=== PATIENT | male | born 1965 | race Hispanic/Latino ===

== ENCOUNTER 2018-04-06 22:50 | Inpatient (IN) | payer OTHER, SELFPAY ==
[2018-04-06 23:33] LABS: Absolute Lymphocytes (CBC) 1.2 K/uL (0.7-4.9); Absolute Monocytes 0.4 K/uL (0.1-1.3); Absolute Neutrophil 3.3 K/uL (1.8-8.0); Basophils % 0.7 % (0-1.3); Eosinophils % 2.1 % (0-4.4); Hematocrit 36.7 % (39.6-49.0); Lymphocytes % 24.2 % (15.3-44.8); MCV 94.4 fL (80-100); MPV 8.7 fL (7.6-11.3); Monocytes % 7.7 % (3.3-12.3); RBC Red Blood Cell Count 3.89 M/uL (4.33-5.43)
[2018-04-06 23:45] LABS: Protime INR 1.2
[2018-04-06 23:55] LABS: ALT/SGPT 27 U/L (12-78); AST/SGOT 40 U/L (15-37); Albumin 2.7 g/dL (3.4-5.0); Alkaline Phosphatase 268 U/L (45-117); BUN Blood Urea Nitrogen 14 mg/dL (7-18); Bicarbonate 22 mmol/L (21-32); Bilirubin Direct 0.7 mg/dL (0-0.2); Bilirubin Total 1.7 mg/dL (0.2-1.0); Glucose Level 174 mg/dL (74-106); Magnesium 1.5 mg/dL (1.8-2.4); NT PRO-BNP 29 pg/mL (<125); Potassium 4.5 mmol/L (3.5-5.1); Protein, Total 8.7 g/dL (6.4-8.2); Sodium Level 138 mmol/L (136-145); Troponin (Emerg Dept Use Only) < 0.02 ng/mL (0.0-0.045)
[2018-04-06 23:58] LABS: Urine Blood NEGATIVE (NEG); Urine Glucose NEGATIVE (NEG); Urine Protein TRACE (NEG); Urine Specific Gravity 1.025 (1.005-1.030)
[2018-04-07 00:05] LABS: Barbiturates NEGATIVE (NEGATIVE); Benzodiazepines NEGATIVE (NEGATIVE); Cocaine NEGATIVE (NEGATIVE); METHAMPHETAM NEGATIVE (NEGATIVE); Methadone NEGATIVE (NEGATIVE); Opiates NEGATIVE (NEGATIVE); Phencyclidine NEGATIVE (NEGATIVE); THC Cannibis NEGATIVE (NEGATIVE)
[2018-04-07] MEDS ORDERED: NA CHLORIDE 0.9% 2,000 ML ONE (00:12)
[2018-04-07] MEDS ORDERED: Magnesium Sulfate 2gm IVPB 2 G/50 ML BAG IV ONE (00:50)
--- NOTE | 2018-04-07 01:07 | ER ---
Nurse's Notes [facility] Name: Mega Mcpherson Age: 53 yrs Sex: Male : 1965 Arrival Date: 04/06/2018 Time: 22:53 Bed 7 Private MD: Diagnosis: Altered mental status, unspecified;Hepatic Encephalopathy Presentation: 04/06 22:53 Presenting complaint: EMS states: Called by patient's mother, states patient has been jd3 like this all day, states altered mental status; Non-complaint with lactulose medication, hx of cirrhosis. Transition of care: patient was not received from another setting of care. Onset of symptoms was April 06, 2018. Risk Assessment: Do you want to hurt yourself or someone else? Patient reports no desire to harm self or others. Initial Sepsis Screen: Does the patient meet any 2 criteria? No. Patient's initial sepsis screen is negative. Does the patient have a suspected source of infection? No. Patient's initial sepsis screen is negative. Care prior to arrival: IV initiated. 20 GA, in the left forearm, Glucose check: 200. 22:53 Method Of Arrival: EMS: [facility] jd3 22:53 Acuity: ELISABETH 3 jd3 Historical: - Allergies: 23:07 Unable to Assess; jd3 - Home Meds: 23:07 furosemide 20 mg Oral tab 1 tab once daily [Active]; glipizide 10 mg Oral tab three jd3 times a day [Active]; hydroxyzine HCl 25 mg Oral tab every 6 hours for Urticaria [Active]; insulin NPH and regular human subcutaneous 60 units subcutaneous twice a day [Active]; lactulose 10 gram/15 mL (15 mL) Oral soln 30 mL 3 times per day [Active]; magnesium oxide 400 mg Oral tab three times a day [Active]; metformin 1,000 mg Oral tab 1 tab 2 times per day [Active]; omeprazole 20 mg Oral cpDR 1 cap once daily [Active]; permethrin 5 % topical crea [Active]; pravastatin 40 mg oral tab nightly [Active]; propranolol 20 mg Oral tab 2 times per day [Active]; Xifaxan 550 mg oral tab 1 tab 2 times per day [Active]; spironolactone 50 mg Oral tab 1 tab once daily [Active]; thiamine HCl (vitamin B1) 100 mg Oral tab daily [Active]; - PMHx: 23:07 esophageal varices; Hepatitis C; Hypertension; Diabetes - IDDM; Cirrhosis; jd3 - PSHx: 23:07 Unable to obtain; jd3 - Immunization history:: Adult Immunizations unknown. - Social history:: Smoking status: unknown. - Ebola Screening: : No symptoms or risks identified at this time. Screenin:04 Abuse screen: Denies threats or abuse. Nutritional screening: No deficits noted. jb4 Tuberculosis screening: No symptoms or risk factors identified. Fall Risk IV access (20 points). Mental Status- Overestimates/Forgets Limitations (15 pts.). Total Sierra Fall Scale indicates Low Risk Score (25-44 pts). Fall prevention measures have been instituted. Side Rails Up X 2 Placed close to Nursing Station Frequent Obs/Assesments occuring. Assessment: 22:59 General: Appears in no apparent distress. Behavior is calm. Pain: Denies pain. Neuro: jb4 Level of Consciousness is awake, confused, Oriented to person, Speech is normal, Facial symmetry appears normal, Pupils are PERRLA. Cardiovascular: Heart tones S1 S2 present Patient's skin is warm and dry. Respiratory: Airway is patent Respiratory effort is even, unlabored, Respiratory pattern is regular, symmetrical, Breath sounds are clear bilaterally. GI: Abdomen is round non-distended, Bowel sounds present X 4 quads. Abd is soft and non tender X 4 quads. : No signs and/or symptoms were reported regarding the genitourinary system. EENT: No signs and/or symptoms were reported regarding the EENT system. Derm: Skin is intact, Skin is pink, warm \T\ dry. Musculoskeletal: Circulation, motion, and sensation intact. 23:11 Reassessment: Spoke with patient's mother, Marycarmen Tang, states patient is normally lp1 A\T\O x4; Does not take medications as prescibed, has been altered all day; Phone number for any questions is [phone]. 04/07 00:11 Reassessment: Pt to CT via stretcher. Pt is A\T\ox1. Awake but drowsy. No S\T\S of distress bharathi 4 noted. Respirations even and unlabored. 01:40 Reassessment: Bedside swallow screen assessed; Patient tolerated water well. lp1 03:00 Reassessment: Patient appears in no apparent distress at this time. Patient and/or jb4 family updated on plan of care and expected duration. Pain level reassessed. Pt is resting with eyes closed, no s/s of distress noted. respirations even and unlabored. 03:21 Reassessment: Patient's brief changed at this time. lp1 Vital Signs: 04/06 22:56 BP 147 / 63; Pulse 68; Resp 20; Temp 98.6(TE); Pulse Ox 100% on R/A; Weight 70.31 kg; lp1 23:30 BP 166 / 76; Pulse 80; Resp 18; Pulse Ox 98% on R/A; jb4 04/07 00:45 BP 130 / 71; Pulse 62; Resp 12; Pulse Ox 98% on R/A; lp1 01:00 BP 130 / 64; Pulse 71; Resp 12; Pulse Ox 100% on R/A; lp1 02:03 BP 150 / 77; Pulse 84; Resp 14; Pulse Ox 100% on R/A; lp1 03:00 BP 120 / 77; Pulse 78; Resp 16; Pulse Ox 100% on R/A; jb4 ED Course: 04/06 22:53 Patient arrived in ED. jd3 22:54 Ankush Ha PA is PHCP. cp 22:54 Johann Trinh MD is Attending Physician. cp 22:55 Triage completed. jd3 22:55 Arm band placed on right wrist. jd3 22:59 Low Pollard, YVON is Primary Nurse. jb4 23:00 Maintain EMS IV. Dressing intact. Good blood return noted. Site clean \T\ dry. Gauge \T\ lp 1 site: 20g left forearm. 23:04 Patient has correct armband on for positive identification. Bed in low position. Call jb4 light in reach. Side rails up X2. wharf attendant on. Pulse ox on. NIBP on. 23:44 XRAY Chest (1 view) In Process Unspecified. EDMS 23:44 X-ray completed. Portable x-ray completed in exam room. Patient tolerated procedure kp1 well. 23:55 Notified Nurse Practitioner and/or Physician Route Returner of a critical lab result(s), fc lactate of 2.6. 04/07 00:28 CT Head Brain wo Cont In Process Unspecified. EDMS 01:05 Ester Virk MD is Hospitalizing Provider. cp 01:45 Linen changed. lp1 01:47 No provider procedures requiring assistance completed. Patient admitted, IV remains in lp1 place. Administered Medications: 00:10 Drug: NS 0.9% (30 ml/kg) 30 ml/kg Route: IV; Rate: bolus; Site: left wrist; jb4 03:01 Follow up: Response: No adverse reaction; IV Status: Completed infusion jb4 00:48 Drug: Magnesium Sulfate 2 grams Route: IVPB; Infused Over: 2 hrs; Site: left forearm; jb4 01:45 Follow up: IV Status: Completed infusion lp1 03:02 Follow up: Response: No adverse reaction jb4 01:44 CANCELLED (Physician Discretion): Lactulose 60 grams [place] once; dilute with 700 mL of jb4 saline, then give by rectal balloon catheter; retain for 30-60 minutes 01:45 Drug: Lactulose 20 grams Volume: 30 ml; Route: PO; lp1 02:59 Follow up: Response: No adverse reaction jb4 Outcome: 01:06 Decision to Hospitalize by Provider. cp 01:48 Condition: stable lp1 01:48 Instructed on the need for admit. 03:00 Admitted to Tele accompanied by tech, via stretcher, room 401, with chart, Report jb4 called to Geno Szymanski RN 03:21 Patient left the ED. lp1 Signatures: Dispatcher [employer] EDMS Mary Penn RN Chelo Mukherjee RN RN lp1 Ankush Ha PA PA Low Flaherty RN RN jb4 Judith Collado 1 Austyn Trammell RN RN jd3 Corrections: (The following items were deleted from the chart) 04/06 23:04 22:59 Neuro: Level of Consciousness is awake, confused, Oriented to person, jb4 jb4 23:17 22:56 BP 147 / 63; Pulse 68bpm; Resp 20bpm; Pulse Ox 100% RA; Temp 98.6F Temporal; jd3 lp1 04/07 01:47 01:47 Maintain EMS IV. Dressing intact. Good blood return noted. Site clean \T\ dry. lp1 Gauge \T\ site: 20g left forearm. lp1 03:02 03:01 Response: No adverse reaction; IV Status: Completed infusion jb4 jb4
--- NOTE | 2018-04-07 01:07 | EDPHYS ---
Physician Documentation [facility] Name: Mega Mcpherson Age: 53 yrs Sex: Male : 1965 Arrival Date: 04/06/2018 Time: 22:53 Bed 7 Private MD: ED Physician Johann Trinh HPI: 04/06 23:05 This 53 yrs old Male presents to ER via EMS with complaints of Altered Mental cp Status. 23:05 The patient presents with confusion, disorientation. Onset: The symptoms/episode cp began/occurred at an unknown time. Possible causes: history of cirrhosis. Current symptoms: In the emergency department the patient's symptoms are unchanged from the initial presentation, despite home interventions. 23:05 Patient's baseline: unknown. cp 23:05 Unable to obtain HPI due to altered mental status. cp Historical: - Allergies: 23: Unable to Assess; jd3 - Home Meds: 23:07 furosemide 20 mg Oral tab 1 tab once daily [Active]; glipizide 10 mg Oral tab three jd3 times a day [Active]; hydroxyzine HCl 25 mg Oral tab every 6 hours for Urticaria [Active]; insulin NPH and regular human subcutaneous 60 units subcutaneous twice a day [Active]; lactulose 10 gram/15 mL (15 mL) Oral soln 30 mL 3 times per day [Active]; magnesium oxide 400 mg Oral tab three times a day [Active]; metformin 1,000 mg Oral tab 1 tab 2 times per day [Active]; omeprazole 20 mg Oral cpDR 1 cap once daily [Active]; permethrin 5 % topical crea [Active]; pravastatin 40 mg oral tab nightly [Active]; propranolol 20 mg Oral tab 2 times per day [Active]; Xifaxan 550 mg oral tab 1 tab 2 times per day [Active]; spironolactone 50 mg Oral tab 1 tab once daily [Active]; thiamine HCl (vitamin B1) 100 mg Oral tab daily [Active]; - PMHx: 23:07 esophageal varices; Hepatitis C; Hypertension; Diabetes - IDDM; Cirrhosis; jd3 - PSHx: 23:07 Unable to obtain; jd3 - Immunization history:: Adult Immunizations unknown. - Social history:: Smoking status: unknown. - Ebola Screening: : No symptoms or risks identified at this time. ROS: 23:10 Constitutional: Negative for fever. cp 23:10 Unable to obtain ROS due to altered mental status. cp Exam: 23:15 Constitutional: The patient appears in no acute distress, alert, awake, cp non-diaphoretic, non-toxic, well developed, well nourished. 23:15 Head/Face: Normocephalic, atraumatic. cp 23:15 Eyes: Periorbital structures: appear normal, Pupils: equal, round, and reactive to light and accomodation, Conjunctiva: normal, no exudate, no injection, Sclera: no appreciated abnormality, Lids and lashes: appear normal, bilaterally. 23:15 ENT: External ear(s): are unremarkable, Ear canal(s): are normal, clear, TM's: dullness, bilaterally, Nose: is normal, Mouth: Lips: dry, Oral mucosa: moist, Posterior pharynx: is normal, airway is patent, no erythema, no exudate. 23:15 Neck: ROM/movement: is normal, is supple, without pain, no range of motions limitations, no meningismus, no nuchal rigidity, Lymph nodes: no appreciated lymphadenopathy. 23:15 Chest/axilla: Inspection: normal, Palpation: is normal, no crepitus, no tenderness. 23:15 Cardiovascular: Rate: normal, Rhythm: regular, Pulses: Pulses are 2+ in right radial artery and left radial artery. Heart sounds: murmur, not appreciated, Edema: is not appreciated, JVD: is not appreciated. 23:15 Respiratory: the patient does not display signs of respiratory distress, Respirations: normal, no use of accessory muscles, no retractions, no splinting, no tachypnea, labored breathing, is not present, Breath sounds: are clear throughout, no decreased breath sounds, no stridor, no wheezing. 23:15 Abdomen/GI: Inspection: abdomen appears normal, Bowel sounds: active, all quadrants, Palpation: abdomen is soft and non-tender, in all quadrants, rebound tenderness, is not appreciated, involuntary guarding, is not appreciated. 23:15 Back: pain, is absent, ROM is normal, vertebral tenderness, is not appreciated. 23:15 Musculoskeletal/extremity: Exam is negative for bony tenderness, calf tenderness, decreased range of motion, deformity, injury. 23:15 Skin: cellulitis, is not appreciated, no rash present. 23:15 Neuro: Orientation: to person, Not oriented to place, time, situation, Mentation: slow to respond, confused, somnolent, Cerebellar function: unable to test, Motor: moves all fours, general weakness w/o focal deficits, Sensation: unable to test, Gait: unable to assess. 23:28 ECG was reviewed by the Attending Physician. Vital Signs: 22:56 BP 147 / 63; Pulse 68; Resp 20; Temp 98.6(TE); Pulse Ox 100% on R/A; Weight 70.31 kg; lp1 23:30 BP 166 / 76; Pulse 80; Resp 18; Pulse Ox 98% on R/A; jb4 04/07 00:45 BP 130 / 71; Pulse 62; Resp 12; Pulse Ox 98% on R/A; lp1 01:00 BP 130 / 64; Pulse 71; Resp 12; Pulse Ox 100% on R/A; lp1 02:03 BP 150 / 77; Pulse 84; Resp 14; Pulse Ox 100% on R/A; lp1 03:00 BP 120 / 77; Pulse 78; Resp 16; Pulse Ox 100% on R/A; jb4 MDM: 04/06 22:55 Patient medically screened. 23:05 ED course: Patient is not a candidate for tpa as unknown onset of symptoms. 23:30 Differential Diagnosis: CVA, electrolyte abnormality, alcohol intoxication, cp intracranial bleed, meningitis, seizure, sepsis, TIA, volume depletion. 04/07 01:00 Data reviewed: vital signs, nurses notes, lab test result(s), EKG, radiologic studies, CT scan, On exam neck is supple and w/o meningeal signs, WBC not elevated, procalcitonin normal. Will hydrate with IV fluids and recheck lactate level. 01:04 Physician consultation: Ester Virk MD was called at 01:05, was contacted at 01:05, regarding admission, to the medical/surgical unit. patient's condition, and will see patient in ED, shortly. 04/06 23:02 Order name: AMMONIA; Complete Time: 23:57 04/06 23:57 Interpretation: Abnormal: JAME 194. 04/06 23:02 Order name: Blood Culture Adult (2) 04/06 23:02 Order name: Basic Metabolic Panel; Complete Time: 23:57 04/07 00:09 Interpretation: Normal except: CL 110; GLUC 174. cp 04/06 23:02 Order name: CBC with Diff; Complete Time: 23:57 cp 04/06 23:57 Interpretation: Normal except: RBC 3.89; HGB 12.8; HCT 36.7; MCV 94.4; PLT 141; RDW cp 22.1. 04/06 23:02 Order name: LFT's; Complete Time: 23:57 cp 04/07 00:16 Interpretation: Normal except: AST 40; ALK 268; BILIT 1.7; BILID 0.7; TP 8.7; ALB 2.7; cp GLOB 6.0; A/G 0.5. 04/06 23:02 Order name: Magnesium; Complete Time: 23:57 cp 04/07 00:16 Interpretation: Abnormal: MG 1.5. cp 04/06 23:02 Order name: NT PRO-BNP; Complete Time: 23:57 cp 04/06 23:02 Order name: PT-INR; Complete Time: 23:58 cp 04/06 23:02 Order name: Troponin (emerg Dept Use Only); Complete Time: 23:57 cp 04/06 23:02 Order name: Lactate; Complete Time: 23:57 cp 04/07 00:16 Interpretation: Abnormal: LAC 2.6. 04/06 23:02 Order name: Procalcitonin; Complete Time: 00:44 cp 04/06 23:02 Order name: UDS; Complete Time: 00:08 04/07 00:09 Interpretation: Reviewed. 04/06 23:02 Order name: ETOH Level; Complete Time: 23:57 cp 04/06 23:52 Order name: Urine Dipstick--Ancillary (enter results); Complete Time: 00:08 04/06 23:02 Order name: CT Head Brain wo Cont cp 04/06 23:02 Order name: XRAY Chest (1 view) cp 04/06 23:02 Order name: EKG; Complete Time: 23:03 cp 04/06 23:02 Order name: Cardiac monitoring; Complete Time: 23:06 cp 04/06 23:02 Order name: EKG - Nurse/Tech; Complete Time: 23:06 cp 04/06 23:02 Order name: IV Saline Lock; Complete Time: 23:06 cp 04/06 23:02 Order name: Labs collected and sent; Complete Time: 23:32 cp 04/06 23:02 Order name: O2 Per Protocol; Complete Time: 23:06 cp 04/06 23:02 Order name: O2 Sat Monitoring; Complete Time: 23:06 cp 04/07 03:20 Order name: Lactate Sepsis 2 HR Follow-up EDMS EC/22 23:28 Rate is 79 beats/min. Rhythm is regular. FL interval is normal. QRS interval is normal. cp QT interval is normal. Interpreted by me. Reviewed by me. Administered Medications: 04/07 00:10 Drug: NS 0.9% (30 ml/kg) 30 ml/kg Route: IV; Rate: bolus; Site: left wrist; jb4 03:01 Follow up: Response: No adverse reaction; IV Status: Completed infusion jb4 00:48 Drug: Magnesium Sulfate 2 grams Route: IVPB; Infused Over: 2 hrs; Site: left forearm; jb4 01:45 Follow up: IV Status: Completed infusion lp1 03:02 Follow up: Response: No adverse reaction jb4 01:44 CANCELLED (Physician Discretion): Lactulose 60 grams FL once; dilute with 700 mL of jb4 saline, then give by rectal balloon catheter; retain for 30-60 minutes 01:45 Drug: Lactulose 20 grams Volume: 30 ml; Route: PO; lp1 02:59 Follow up: Response: No adverse reaction jb4 Disposition: 03:30 Chart complete. cp 04:59 Co-signature as Attending Physician, Johann Trinh MD. rn Disposition: 04/07/18 01:06 Hospitalization ordered by Ester Virk for Inpatient Admission. Preliminary diagnosis are Altered mental status, unspecified, Hepatic Encephalopathy. - Bed requested for Telemetry/MedSurg (Inpatient). - Status is Inpatient Admission. lp1 - Condition is Fair. - Problem is new. - Symptoms have improved. UTI on Admission? No Signatures: Dispatcher [employer] EDCA Rita House RN RN kl Nieto, Roman, MD MD rn Pena, Laura, RN RN lp1 Ankush Ha PA PA cp Low Pollard RN RN jb4 Austyn Trammell RN RN jd3 Corrections: (The following items were deleted from the chart) 00:01 04/06 23:02 Urrutia ordered. cp jb4 04/07 01:13 01:06 Hospitalization Ordered by Ester Virk MD for Inpatient Admission. Preliminary kl diagnosis is Altered mental status, unspecified; Hepatic Encephalopathy. Bed requested for Telemetry/MedSurg (Inpatient). Status is Inpatient Admission. Condition is Fair. Problem is new. Symptoms have improved. UTI on Admission? No. cp 01:44 00:47 Lactulose 60 grams FL once; dilute with 700 mL of saline, then give by rectal jb4 balloon catheter; retain for 30-60 minutes ordered. cp 03:21 01:13 04/07/2018 01:06 Hospitalization Ordered by Ester Virk MD for Inpatient lp1 Admission. Preliminary diagnosis is Altered mental status, unspecified; Hepatic Encephalopathy. Bed requested for Telemetry/MedSurg (Inpatient). Status is Inpatient Admission. Condition is Fair. Problem is new. Symptoms have improved. UTI on Admission? No. kl
[2018-04-07] MEDS ORDERED: LACTULOSE 20 GM/30 ML UCUP ONE (01:42)
--- NOTE | 2018-04-07 03:38 | P.HP ---
Certification for Inpatient Patient admitted to: Inpatient With expected LOS: >2 Midnights Practitioner: I am a practitioner with admitting privileges, knowledge of patient current condition, hospital course, and medical plan of care. Services: Services provided to patient in accordance with Admission requirements found in Title 42 Section 412.3 of the Code of Federal Regulations Patient History Date of Service: 04/07/18 Reason for admission: Hepatic encephalopathy History of Present Illness: Mr Darling is a 53-year-old gentleman with history of liver cirrhosis, hepatitis -C esophageal varices, who came to the hospital with altered mental status. According to the home mentation from ER the patient start to be more sleepy and confused yesterday morning. No history of fever or chills. At my encounter the patient was alert but unable to provide any history. Laboratory work remarkable for normal WBC count, but significant elevation of ammonia level 194 , procalcitonin within normal limits, lactate elevated 2.6. CT of the head showed not acute abnormality, formal radiology reading report is still pending. Allergies No Known Allergies Allergy (Unverified 04/28/16 21:46) Home medications list reviewed: Yes - Past Medical/Surgical History -: Liver cirrhosis -: Hepatitis-C -: Esophageal varices -: Diabetes mellitus Past Surgical History: Unable to obtain - Family History Family History: Reviewed- Non-Contributory - Social History Smoking Status: Unknown if ever smoked Place of Residence: Home Review of Systems 10-point ROS is otherwise unremarkable Physical Examination - Vital Signs Temperature: 98.6 F Blood Pressure: 120/77 Pulse: 78 Respirations: 16 - Physical Exam General: Alert, In no apparent distress, Confused HEENT: Atraumatic, PERRLA, Mucous membr. moist/pink, EOMI, Sclerae nonicteric Neck: Supple, 2+ carotid pulse no bruit, No LAD, Without JVD or thyroid abnormality Respiratory: Clear to auscultation bilaterally, Normal air movement Cardiovascular: Regular rate/rhythm, Normal S1 S2 Gastrointestinal: Normal bowel sounds, No tenderness Musculoskeletal: No tenderness Integumentary: No rashes Neurological: Normal strength at 5/5 x4 extr, Normal tone, Normal affect Lymphatics: No axilla or inguinal lymphadenopathy - Studies Laboratory Data (last 24 hrs) 04/06/18 23:10: PT 14.2 H, INR 1.20 04/06/18 23:10: WBC 5.0, Hgb 12.8 L, Hct 36.7 L, Plt Count 141 L 04/06/18 23:10: Sodium 138, Potassium 4.5, BUN 14, Creatinine 0.80, Glucose 174 H, Magnesium 1.5 L, Total Bilirubin 1.7 H, AST 40 H, ALT 27, Alkaline Phosphatase 268 H Assessment and Plan - Problems (Diagnosis) (1) Hepatic encephalopathy Current Visit: Yes Status: Acute (2) Liver cirrhosis Current Visit: Yes Status: Acute Qualifiers: Hepatic cirrhosis type: unspecified biliary cirrhosis Qualified Code(s): K74.5 - Biliary cirrhosis, unspecified (3) Diabetes mellitus Current Visit: Yes Status: Acute Qualifiers: Diabetes mellitus type: type 2 Diabetes mellitus care home insulin use: unspecified care home insulin use status Diabetes mellitus complication status : with unspecified complications Qualified Code(s): E11.8 - Type 2 diabetes mellitus with unspecified complications - Plan The patient will be admitted to the hospital due to hepatic encephalopathy, ammonia level is significantly elevated 194. Apparently the patient is not very well compliant with his lactulose treatment. Will resume lactulose 20 mg 3 times a day. Will put on fall percussion. SSI for blood sugar control, order hemoglobin A1c. - Advance Directives Does patient have a Living Will: No Does patient have a Durable POA for Healthcare: No - Code Status/Comfort Care Code Status Assessed: Yes Code Status: Full Code
[2018-04-07] MEDS ORDERED: ONDANSETRON 4 MG/2 ML VIAL IV PRN (03:46)
[2018-04-07] MEDS ORDERED: NA CHLORIDE 0.9% 1,000 ML IV ONE (03:46)
[2018-04-07] MEDS: NA CHLORIDE 0.9% 1,000 ML IV SCH ×2 (04:00→17:04)
[2018-04-07 04:38] VITALS: BMI 24.3
[2018-04-07] MEDS: INSULIN -REGULAR HUMAN 50 UNIT/0.5 ML ML SQ SCH ×4 (06:00→20:35)
[2018-04-07] MEDS ORDERED: SODIUM CHLORIDE 0.9% 10ML INJ IV PRN (06:37)
--- NOTE | 2018-04-07 08:27 | P.PN ---
Subjective Date of Service: 04/07/18 Primary Care Provider: None Chief Complaint: Hepatic encephalopathy Subjective: Other (Patient resting in bed.) Physical Examination - Vital Signs Temperature: 97.1 F Blood Pressure: 144/64 Pulse: 80 Respirations: 20 Pulse Ox (%): 100 - Physical Exam General: Alert, Other (Slight confusion noted. Increase sedation but improved) HEENT: Atraumatic Neck: Supple Respiratory: Clear to auscultation bilaterally, Normal air movement Cardiovascular: Normal pulses, Regular rate/rhythm Gastrointestinal: Normal bowel sounds, Soft and benign, Non-distended, No tenderness, No masses, No rebound, No guarding Musculoskeletal: No erythema, No tenderness, No warmth Integumentary: No tenderness/swelling, No erythema, No warmth, No cyanosis Neurological: Normal speech, Normal strength at 5/5 x4 extr, Normal tone - Studies Laboratory Data (last 24 hrs) 04/06/18 23:10: PT 14.2 H, INR 1.20 04/06/18 23:10: WBC 5.0, Hgb 12.8 L, Hct 36.7 L, Plt Count 141 L 04/06/18 23:10: Sodium 138, Potassium 4.5, BUN 14, Creatinine 0.80, Glucose 174 H, Magnesium 1.5 L, Total Bilirubin 1.7 H, AST 40 H, ALT 27, Alkaline Phosphatase 268 H Medications List Reviewed: Yes Assessment & Plan Discharge Plan: Home Plan to discharge in: 48 Hours Physician Review Additional Text: Impression: Hepatic encephalopathy with history of hepatitis-C, esophageal varices, non compliance with medication Diabetes mellitus type 2 GERD Non compliance with medication and follow up Hypomagnesia Hypertension Plan: Hepatic encephalopathy with history of hepatitis-C, esophageal varices, non compliance with medication: Will continue with lactulose. Monitor stools. Xifaxan added. Continue with IV fluids and electrolyte replacement. Will reassess mentation today. Will encourage ambulation with physical therapy. Will start DVT prophylaxis. Encourage compliance with medication. Will address lifestyle modification education. Will provide resources to establish care with a local physician. Diabetes mellitus type 2: Will continue with sliding scale and monitor Accu- Cheks. A1c pending. GERD: Will provide PPI. Non compliance with medication and follow up: Will address compliance with medication and follow up. Will have social work program coordinator provide resources to establish care with a physician. Hypomagnesia: Continue to monitor and replace appropriately. Hypertension: Will have nurses obtain and verify home medication. Will provide hydralazine IV as needed. Time Spent Managing Pts Care (In Minutes): 55
[2018-04-07] MEDS ORDERED: HYDRALAZINE HCL 20 MG/ML VIAL IV PRN (08:28)
[2018-04-07] MEDS: LACTULOSE 20 GM/30 ML UCUP PO SCH ×3 (08:45→20:35)
[2018-04-07] MEDS: THIAMINE 200 MG/2 ML INJ IVP SCH (08:45)
[2018-04-07] MEDS: PANTOPRAZOLE 40 MG INJ IVP SCH (08:45)
[2018-04-07] MEDS: Rifaximin 550 MG Tab PO SCH ×2 (09:00→20:35)
[2018-04-07] MEDS ORDERED: FOLIC ACID 5 MG/ML VIAL IVP SCH (09:00)
--- NOTE | 2018-04-07 11:24 | RAD REPORT ---
EXAM DESCRIPTION: RAD - Chest Single View - 04/06/2018 11:45 pm CLINICAL HISTORY: Transient alteration of awareness, shortness of breath The final report was delayed due to PACs and/or Fluency technical problems that existed at the time of the study or during expected/usual dictation time period. COMPARISON: CT chest April 2016 TECHNIQUE: AP portable chest image was obtained 2331 hours . FINDINGS: Lung volumes are low accentuating heart, vasculature and lung markings. True cardiomegaly is not suspected. Exam limitations accentuates vasculature and lung markings. This could mask a mild failure or volume overload. An interstitial infectious edema or infiltrate could be masked. Trachea i s midline. No measurable pleural effusion and no pneumothorax. No gross bony abnormality seen. No acu te aortic findings suspected. IMPRESSION: No peripheral mass or consolidation. Limited shallow inspiration exam could mask early failure/ volume overload or early interstitial infi ltrate.
--- NOTE | 2018-04-07 11:26 | RAD REPORT ---
EXAM DESCRIPTION: CT - Head Brain Wo Cont - 04/07/2018 7:06 am CLINICAL HISTORY: Transient alteration of awareness. A preliminary report was provided at the time of the study and reviewed prior to final report. . The final report was delayed due to PACs and/or Fluency technical problems that existed at the time of the study or during expected/usual dictation time period. COMPARISON: None. TECHNIQUE: Axial 5 mm thick images of the head were obtained without IV contrast. All CT scans are performed using dose optimization technique as appropriate and may include automated exposure control or mA/KV adjustment according to patient size. FINDINGS: No intracranial hemorrhage, mass, edema or shift of mid-line structures. No acute infarcti on changes seen. No cortical edema or sulcal effacement. Advanced for age arterial tree calcification s are present. There is some minimal volume loss change. There are patchy areas of diminished attenua tion in the cerebral white matter. This is most likely chronic ischemic change. Mastoid air cells and visualized portions of the paranasal sinuses are clear. No acute bony findings. IMPRESSION: No hemorrhage or acute intracranial finding identified. White matter attenuation abnormality is most likely chronic ischemic change. This is advanced for th e patient's age.
[2018-04-07] MEDS ORDERED: ENOXAPARIN 40 MG/0.4 ML SQ SCH (17:00)
[2018-04-07 19:47] VITALS: O2SAT 99
[2018-04-08 04:45] LABS: Absolute Lymphocytes (CBC) 1.4 K/uL (0.7-4.9); Absolute Monocytes 0.3 K/uL (0.1-1.3); Absolute Neutrophil 1.9 K/uL (1.8-8.0); Basophils % 0.8 % (0-1.3); Eosinophils % 3.2 % (0-4.4); Lymphocytes % 36.3 % (15.3-44.8); MCH 33.6 pg (27.0-35.0); MCV 94.1 fL (80-100); MPV 8.8 fL (7.6-11.3); Monocytes % 9.2 % (3.3-12.3); RBC Red Blood Cell Count 3.08 M/uL (4.33-5.43)
[2018-04-08 05:23] LABS: ALT/SGPT 21 U/L (12-78); AST/SGOT 33 U/L (15-37); Alkaline Phosphatase 238 U/L (45-117); BUN Blood Urea Nitrogen 9 mg/dL (7-18); Bicarbonate 24 mmol/L (21-32); Bilirubin Total 1.3 mg/dL (0.2-1.0); Glucose Level 243 mg/dL (74-106); Potassium 3.8 mmol/L (3.5-5.1); Protein, Total 6.4 g/dL (6.4-8.2); Sodium Level 140 mmol/L (136-145)
[2018-04-08 05:35] LABS: Magnesium 1.3 mg/dL (1.8-2.4)
[2018-04-08 05:44] LABS: Blood Morphology Comment NOTED (NOT SEEN); Platelet Estimate ADEQ; Urine White Blood Cell Casts OK
[2018-04-08 05:45] LABS: Anisocytosis 1+
[2018-04-08] MEDS ORDERED: Magnesium Sulfate 2gm IVPB 2 G/50 ML BAG IV ONE (06:00)
[2018-04-08] MEDS: NA CHLORIDE 0.9% 1,000 ML IV SCH (06:08)
[2018-04-08] MEDS ORDERED: NPH (HUMAN) 100 UNITS/ML INSULIN SQ SCH (08:00)
--- NOTE | 2018-04-08 08:13 | EKG ---
Test Date: 2018-04-06 Test Time: 23:19:02 Sprayer Operator: RUSSEL MEASUREMENT RESULTS: Intervals: Rate: 79 [place]: 134 QRSD: 76 QT: 410 QTc: 470 [place]: P: 2 [place]: 134 QRS: 30 T: 49 INTERPRETIVE STATEMENTS: Normal sinus rhythm Normal ECG Compared to ECG 04/28/2016 15:35:01 Prolonged QT interval no longer present Electronically Signed On 04-08-18 08:12:55 CDT by Al Nascimento
--- NOTE | 2018-04-08 08:17 | EKG ---
Test Date: 2018-04-06 Test Time: 23:33:07 Folding Machine Tender: RUSSEL MEASUREMENT RESULTS: Intervals: Rate: 75 WV: 146 QRSD: 76 QT: 406 QTc: 453 [place]: P: 18 WV: 146 QRS: 19 T: 33 INTERPRETIVE STATEMENTS: Normal sinus rhythm Septal infarct, age undetermined Abnormal ECG Compared to ECG 04/06/2018 23:19:02 Myocardial infarct finding now present Electronically Signed On 04-08-18 08:16:46 CDT by Al Nascimento
[2018-04-08] MEDS ORDERED: POTASSIUM CL SA 10 MEQ TAB PO ONE (09:00)
[2018-04-08] MEDS ORDERED: FUROSEMIDE 20 MG TABLET PO SCH (09:00)
[2018-04-08] MEDS ORDERED: FOLIC ACID 1 MG in NA CHLORIDE 0.9% 50 ML IV SCH (09:00)
[2018-04-08] MEDS ORDERED: SPIRONOLACTONE 25 MG TABLET PO SCH (09:00)
[2018-04-08] MEDS ORDERED: PROPRANOLOL HCL 40 MG TAB PO SCH (09:00)
[2018-04-08] MEDS ORDERED: PROPRANOLOL HCL 10 MG TAB PO SCH (09:00)
[2018-04-08 09:02] VITALS: BP 119/58; TEMP 97.6
[2018-04-08] MEDS: INSULIN -REGULAR HUMAN 50 UNIT/0.5 ML ML SQ SCH (09:10)
[2018-04-08] MEDS: PANTOPRAZOLE 40 MG INJ IVP SCH (09:10)
[2018-04-08] MEDS: THIAMINE 200 MG/2 ML INJ IVP SCH (09:11)
[2018-04-08] MEDS: LACTULOSE 20 GM/30 ML UCUP PO SCH (09:12)
[2018-04-08] MEDS: Rifaximin 550 MG Tab PO SCH (09:13)
--- NOTE | 2018-04-08 10:25 | P.DS ---
Admission Date: 04/07/18 Discharge Date: 04/08/18 Primary Care Provider: Marko Disposition: ROUTINE DISCHARGE Discharge Condition: GOOD Reason for Admission: Hepatic encephalopathy Procedures: Medical Problem List: Hepatic encephalopathy with history of hepatitis-C, esophageal varices, non compliance with medication Diabetes mellitus type 2 GERD Non compliance with medication and follow up Hypomagnesia Hypertension Anemia with thrombocytopenia likely from chronic disease-hepatitis C Hyperlipidemia Brief History of Present Illness: 53-year-old male presented to the emergency room with altered mental status secondary to hepatic encephalopathy. Patient non compliant with his medication. Patient was admitted for treatment. Patient found to have elevated ammonia level. Hospital Course: Patient found to have hepatic encephalopathy with history of hepatitis-C, esophageal varices and noncompliance with medication. Ammonia level was elevated. Patient was started on lactulose and Xifaxan. His condition improved. Patient now back to baseline. Patient admits noncompliance. Compliance was addressed in detail. Patient understands this. At discharge he will continue with lactulose 20 g 3 times a day and Xifaxan 550 mg 1 pill twice daily. He is to maintain 3-4 bowel movements daily. Patient will also continue with a 1500 cc per day fluid restriction and low-salt diet. At discharge he will continue with Lasix 20 mg daily and Aldactone 50 mg daily. He is to monitor his weight daily. If his weight increases by more than 5 lb he is to contact his PCP for further recommendation. Further adjustment in medication can be done by his PCP. Patient will need a follow up with his network consultant in 2-4 weeks to monitor his progress. Patient to establish care with a PCP in the area to continue his care. Patient has diabetes mellitus type 2. Blood sugars remained stable. At discharge he will continue with insulin therapy-insulin NPH 40 units subcu twice daily and metformin 1000 mg 1 pill twice daily. At discharge I will recommend glipizide due to risk of hypoglycemia. Recommendation is to maintain blood sugars less 140 fasting and less than 200 after meals. Further adjustment can be done by his PCP. Patient to establish care with a PCP to continue his care. Patient has GERD. Patient will continue with Prilosec 20 mg daily. Patient had electrolyte disturbances. This was replaced. Patient will continue with magnesium 400 mg 1 pill 3 times a day. Recommendation to recheck lab-CBC, CMP and magnesium level in 1 week to monitor his progress. Patient with hypertension with esophageal varices. Patient will continue with Inderal 20 mg 1 pill twice daily. Recommendation is to maintain blood pressures less 150/80. Further adjustment can be done by his PCP. Patient may need to hold Inderal if systolic less than 120. Patient has anemia with thrombocytopenia likely from anemia of chronic disease related to hepatitis-C. Patient will continue with thiamine 100 mg 1 pill daily. Recommendation to recheck lab-CBC in 1-2 weeks to monitor his progress. Patient has hyperlipidemia. Patient will continue with pravastatin 40 mg 1 pill once daily. Vital Signs/Physical Exam: Temp Pulse Resp BP Pulse Ox 97.6 F 67 18 119/58 L 99 04/08/18 08:00 04/08/18 09:12 04/08/18 08:00 04/08/18 09:13 04/08/18 08:00 General: Alert, In no apparent distress, Oriented x3, Cooperative HEENT: Atraumatic Neck: Supple Respiratory: Clear to auscultation bilaterally, Normal air movement Cardiovascular: Normal pulses, Regular rate/rhythm Gastrointestinal: Normal bowel sounds, Soft and benign, Non-distended, No tenderness, No masses, No rebound, No guarding Musculoskeletal: No erythema, No tenderness, No warmth Integumentary: No tenderness/swelling, No erythema, No warmth, No cyanosis Neurological: Normal speech, Normal strength at 5/5 x4 extr, Normal tone, Normal affect Laboratory Data at Discharge: WBC 3.8 K/uL (4.3-10.9) L D 04/08/18 04:24 Hgb 10.4 g/dL (13.6-17.9) L 04/08/18 04:24 Hct 29.0 % (39.6-49.0) L D 04/08/18 04:24 Plt Count 105 K/uL (152-406) L D 04/08/18 04:24 PT 14.2 SECONDS (9.5-12.5) H 04/06/18 23:10 INR 1.20 04/06/18 23:10 Sodium 140 mmol/L (136-145) 04/08/18 04:24 Potassium 3.8 mmol/L (3.5-5.1) 04/08/18 04:24 BUN 9 mg/dL (7-18) 04/08/18 04:24 Creatinine 0.70 mg/dL (0.55-1.3) 04/08/18 04:24 Glucose 243 mg/dL (74-106) H 04/08/18 04:24 Magnesium 1.3 mg/dL (1.8-2.4) L* 04/08/18 04:24 Total Bilirubin 1.3 mg/dL (0.2-1.0) H 04/08/18 04:24 AST 33 U/L (15-37) 04/08/18 04:24 ALT 21 U/L (12-78) 04/08/18 04:24 Alkaline Phosphatase 238 U/L (45-117) H 04/08/18 04:24 Home Medications: Furosemide [Lasix] 20 mg PO DAILY 04/07/18 Insulin NPH Hum/Reg Insulin Hm [Humulin 70/30 Kwikpen] 40 unit SQ BID 04/07/18 Lactulose 20 gm PO TID 04/07/18 Magnesium Oxide [Mag 0X*] 400 mg PO TID 04/07/18 Metformin HCl 1,000 mg PO BID 04/07/18 Omeprazole 20 mg PO DAILY 04/07/18 Pravastatin Sodium 40 mg PO DAILY AFTER SUPPER 04/07/18 Propranolol [Inderal*] 20 mg PO BID 04/07/18 Rifaximin [Xifaxan] 550 mg PO BID 04/07/18 Spironolactone 50 mg PO DAILY 04/07/18 Thiamine HCl [Vitamin B-1*] 100 mg PO DAILY 04/07/18 Patient Discharge Instructions: 1. Patient will need to establish care with a PCP in the area and to follow up this hospitalization. 2. Patient found to have hepatic encephalopathy with history of hepatitis-C, esophageal varices and noncompliance with medication. Ammonia level was elevated. Patient was started on lactulose and Xifaxan. His condition improved. Patient now back to baseline. Patient admits noncompliance. Compliance was addressed in detail. Patient understands this. At discharge he will continue with lactulose 20 g 3 times a day and Xifaxan 550 mg 1 pill twice daily. Patient is to maintain 3-4 bowel movements daily. Patient will also continue with a 1500 cc per day fluid restriction and low-salt diet. At discharge he will continue with Lasix 20 mg daily and Aldactone 50 mg daily. He is to monitor his weight daily. If his weight increases by more than 5 lb he is to contact his PCP for further recommendation. Further adjustment in medication can be done by his PCP. Patient will need a follow up with his network consultant in 2-4 weeks to monitor his progress. Patient to establish care with a PCP in the area to continue his care. 3. Patient has diabetes mellitus type 2. Blood sugars remained stable. At discharge he will continue with insulin therapy-insulin NPH 40 units subcu twice daily and metformin 1000 mg 1 pill twice daily. At discharge I will recommend glipizide due to risk of hypoglycemia. Recommendation is to maintain blood sugars less 140 fasting and less than 200 after meals. Further adjustment can be done by his PCP. Patient to establish care with a PCP to continue his care. 4. Patient has GERD. Patient will continue with Prilosec 20 mg daily. 5. Patient had electrolyte disturbances. This was replaced. Patient will continue with magnesium 400 mg 1 pill 3 times a day. Recommendation to recheck lab-CBC, CMP and magnesium level in 1 week to monitor his progress. 6. Patient with hypertension with esophageal varices. Patient will continue with Inderal 20 mg 1 pill twice daily. Recommendation is to maintain blood pressures less 150/80. Further adjustment can be done by his PCP. Patient may need to hold Inderal if systolic less than 120. 7. Patient has anemia with thrombocytopenia likely from anemia of chronic disease related to hepatitis-C. Patient will continue with thiamine 100 mg 1 pill daily. Recommendation to recheck lab-CBC in 1-2 weeks to monitor his progress. 8. Patient has hyperlipidemia. Patient will continue with pravastatin 40 mg 1 pill once daily. Diet: ADA Activity: Fall precautions Time spent managing pt's care (in minutes): 55
[2018-04-08] MEDS ORDERED: ATORVASTATIN 10 MG TAB PO SCH (21:00)
== END 2018-04-08 12:10 | disposition home or self-care (01) | DRG 443 ==
LOC: ER 22:50 → ERHOLD 04-07 01:13 → 4TH 04-07 02:54
PROVIDERS: ADMIT Internal Medicine; ATTEND Internal Medicine
DX: K72.00 Acute and subacute hepatic failure without coma (principal); K74.5 Biliary cirrhosis, unspecified; E11.9 Type 2 diabetes mellitus without complications; B19.20 Unspecified viral hepatitis C without hepatic coma; E83.42 Hypomagnesemia; K21.9 Gastro-esophageal reflux disease without esophagitis; I10 Essential (primary) hypertension; D69.6 Thrombocytopenia, unspecified; Z91.14 Patient's other noncompliance with medication regimen; E78.4 Other hyperlipidemia
CPT/HCPCS: 36415; 70450; 71045; 80048; 80053; 80076; 80307; 80320; 81003; 82140; 82962; 83036; 83605; 83735; 83880; 84145; 84484; 85025; 85610; 87040; 93005; 94760; 97163; 99285; C9113; J1650; J3411; J3475; J7030

== ENCOUNTER 2018-06-30 22:43 | Emergency (ER) | payer OTHER ==
[2018-07-01 01:10] LABS: BUN Blood Urea Nitrogen 7 mg/dL (7-18); Bicarbonate 22 mmol/L (21-32); Glucose Level 251 mg/dL (74-106); Potassium 3.6 mmol/L (3.5-5.1); Sodium Level 133 mmol/L (136-145)
[2018-07-01 01:41] LABS: Absolute Lymphocytes (CBC) 0.9 K/uL (0.7-4.9); Absolute Monocytes 0.5 K/uL (0.1-1.3); Absolute Neutrophil 3.5 K/uL (1.8-8.0); Eosinophils % 2.5 % (0-4.4); Hematocrit 37.9 % (39.6-49.0); Lymphocytes % 17.5 % (15.3-44.8); MCH 32.6 pg (27.0-35.0); MCV 93.5 fL (80-100); MPV 10.2 fL (7.6-11.3); RBC Red Blood Cell Count 4.05 M/uL (4.33-5.43)
--- NOTE | 2018-07-01 01:43 | EDPHYS ---
Physician Documentation [facility] Name: Mega Mcpherson Age: 53 yrs Sex: Male : 1965 Arrival Date: 06/30/2018 Time: 22:45 Bed 28 Private MD: ED Physician Irving Hubbard HPI: 07/01 21:27 This 53 yrs old Male presents to ER via Ambulatory with complaints of tw4 DIABETIC, Fall Injury. 21:27 Onset: The symptoms/episode began/occurred today. Severity of symptoms: At their worst tw4 the symptoms were moderate, in the emergency department the symptoms are unchanged. The patient has not experienced similar symptoms in the past. 21:27 Details of fall: The patient fell from seated position, off the edge of a bed. tw4 Associated injuries: The patient sustained injury to the head, contusion, hematoma. Historical: - Allergies: 06/30 23:20 No Known Allergies; aj1 - Home Meds: 23:20 furosemide 20 mg Oral tab 1 tab once daily [Active]; glipizide 10 mg Oral tab three aj1 times a day [Active]; hydroxyzine HCl 25 mg Oral tab every 6 hours for Urticaria [Active]; insulin NPH and regular human 60 units subcutaneous twice a day [Active]; lactulose 10 gram/15 mL (15 mL) Oral soln 30 mL 3 times per day [Active]; magnesium oxide 400 mg Oral tab three times a day [Active]; metformin 1,000 mg Oral tab 1 tab 2 times per day [Active]; omeprazole 20 mg Oral cpDR 1 cap once daily [Active]; pravastatin 40 mg Oral tab nightly [Active]; propranolol 20 mg Oral tab 2 times per day [Active]; spironolactone 50 mg Oral tab 1 tab once daily [Active]; thiamine HCl (vitamin B1) 100 mg Oral tab daily [Active]; Xifaxan 550 mg Oral tab 1 tab 2 times per day [Active]; - PMHx: 23:20 Cirrhosis; Diabetes - IDDM; esophageal varices; Hepatitis C; Hypertension; aj1 - Immunization history:: Adult Immunizations unknown. - Social history:: Smoking status: Patient uses tobacco products, smokes one pack cigarettes per day. - Ebola Screening: : No symptoms or risks identified at this time. ROS: 07/01 21:27 Constitutional: Negative for fever, chills, and weight loss, Eyes: Negative for injury, tw4 pain, redness, and discharge, Cardiovascular: Negative for chest pain, palpitations, and edema, Respiratory: Negative for shortness of breath, cough, wheezing, and pleuritic chest pain, Abdomen/GI: Negative for abdominal pain, nausea, vomiting, diarrhea, and constipation, Back: Negative for injury and pain, MS/Extremity: Negative for injury and deformity, Skin: Negative for injury, rash, and discoloration. Exam: 21:32 Constitutional: This is a well developed, well nourished patient who is awake, alert, tw4 and in no acute distress. Head/Face: Normocephalic, atraumatic. Chest/axilla: Normal chest wall appearance and motion. Nontender with no deformity. No lesions are appreciated. Cardiovascular: Regular rate and rhythm with a normal S1 and S2. No gallops, murmurs, or rubs. Normal PMI, no JVD. No pulse deficits. Respiratory: Lungs have equal breath sounds bilaterally, clear to auscultation and percussion. No rales, rhonchi or wheezes noted. No increased work of breathing, no retractions or nasal flaring. Abdomen/GI: Soft, non-tender, with normal bowel sounds. No distension or tympany. No guarding or rebound. No evidence of tenderness throughout. Back: No spinal tenderness. No costovertebral tenderness. Full range of motion. MS/ Extremity: Pulses equal, no cyanosis. Neurovascular intact. Full, normal range of motion. Neuro: Awake and alert, GCS 15, oriented to person, place, time, and situation. Cranial nerves II-XII grossly intact. Motor strength 5/5 in all extremities. Sensory grossly intact. Cerebellar exam normal. Normal gait. Vital Signs: 06/30 23:20 BP 124 / 69; Pulse 116; Resp 20; Pulse Ox 98% on R/A; aj1 23:32 BP 124 / 64; Pulse 110; Resp 20; Pulse Ox 97% on R/A; aj1 07/01 00:47 BP 133 / 73; Pulse 104; Resp 18; Pulse Ox 99% on R/A; tl3 01:53 BP 126 / 68; Pulse 96; Resp 16; Pulse Ox 98% on R/A; rv MDM: 06/30 23:07 Patient medically screened. tw4 07/01 21:27 Data reviewed: vital signs, nurses notes. Counseling: I had a detailed discussion with rust the patient and/or guardian regarding: the historical points, exam findings, and any diagnostic results supporting the discharge/admit diagnosis. ED course: CT head negative pt awake alert in NAD. 21:32 Differential diagnosis: closed head injury, contusion, fracture, laceration. 4 06/30 23:08 Order name: Basic Metabolic Panel; Complete Time: 01:12 tw4 07/01 01:12 Interpretation: Normal except: NA 133; GLUC 251. tw4 06/30 23:08 Order name: CBC with Diff tw4 06/30 23:08 Order name: Creatinine for Radiology tw4 06/30 23:08 Order name: Labs collected and sent; Complete Time: 23:25 rust 06/30 23:19 Order name: Head C Spine Mpr Wo Con EDMS Administered Medications: No medications were administered Disposition: 07/01/18 01:42 Discharged to Home. Impression: Concussion without loss of consciousness. - Condition is Stable. - Discharge Instructions: Post-Concussion Syndrome, Concussion, Adult, Pmyc-[id number], Head Injury, Adult, Mhkg-gc-[id number]. - Prescriptions for Ibuprofen 800 mg Oral Tablet - take 1 tablet by ORAL route every 12 hours As needed take with food; 20 tablet. - Medication Reconciliation Form, Thank You Letter, Antibiotic Education, Prescription Opioid Use form. - Follow up: Private Physician; When: Upon discharge from the Emergency Department; Reason: If symptoms return, Recheck today's complaints, Continuance of care. - Problem is new. - Symptoms have improved. Signatures: Dispatcher [employer] EDMA Nicole Crespo RN RN aj1 Irving Hubbard MD MD tw4 Nate Scott RN RN rv Corrections: (The following items were deleted from the chart) 06/30 23:16 23:09 Head C Spine Cap Wo Con+CT.RAD.BRZ ordered. EDMA EDMA 23:19 23:16 CT HEAD,C-SPINT W/O ordered. [facility] EDMA 23:31 23:09 TYPE AND SCREEN+BB.LAB.BRZ ordered. EDMA EDMA 07/01 01:54 01:42 07/01/2018 01:42 Discharged to Home. Impression: Concussion without loss of rv consciousness. Condition is Stable. Discharge Instructions: Head Injury, Adult, Xygh-[id number]-[id number]. Forms are Medication Reconciliation Form, Thank You Letter, Antibiotic Education, Prescription Opioid Use. Follow up: Private Physician; When: Upon discharge from the Emergency Department; Reason: If symptoms return, Recheck today's complaints, Continuance of care. Problem is new. Symptoms have improved. tw4 21:27 Details of fall: The patient fell from a height, tw4 tw4 21:27 Associated injuries: The patient sustained no obvious injury, tw4 tw4
--- NOTE | 2018-07-01 01:43 | ER ---
Nurse's Notes [facility] Name: Mega Mcpherson Age: 53 yrs Sex: Male : 1965 Arrival Date: 06/30/2018 Time: 22:45 Bed 28 Private MD: Diagnosis: Concussion without loss of consciousness Presentation: 06/30 22:51 Presenting complaint: Patient states: He was sitting on a bed at at a friend's house aj1 and he started feeling sleepy and then he passed out, Hematoma noted to forehead. Laceration noted to forehead. States that his blood sugars have been running high and he drank Coke. Friends that were with the patient states that he tensed up and started seizing [address]. Patient is confused, speech is slurred. Patient states he drank 2 beers today. 22:51 Method Of Arrival: Ambulatory aj1 22:51 Acuity: ELISABETH 2 aj1 23:15 Transition of care: patient was not received from another setting of care. Onset of aj1 symptoms was June 30, 2018. Risk Assessment: Do you want to hurt yourself or someone else? Patient reports no desire to harm self or others. Initial Sepsis Screen: Does the patient meet any 2 criteria? No. Patient's initial sepsis screen is negative. Does the patient have a suspected source of infection? No. Patient's initial sepsis screen is negative. Care prior to arrival: None. Triage Assessment: 23:20 General: Appears in no apparent distress. well developed, well nourished, Behavior is aj1 cooperative, appropriate for age. Pain: Complains of pain in forehead. EENT: No deficits noted. No signs and/or symptoms were reported regarding the EENT system. Neuro: Level of Consciousness is awake, obeys commands, confused, Oriented to person, place, time, situation, Appropriate for age. Cardiovascular: Patient's skin is warm and dry. Rhythm is regular. Respiratory: Airway is patent Respiratory effort is even, unlabored, Respiratory pattern is regular, symmetrical. GI: No deficits noted. No signs and/or symptoms were reported involving the gastrointestinal system. : No deficits noted. No signs and/or symptoms were reported regarding the genitourinary system. Derm: Bruising that is bright red, on forehead. Musculoskeletal: No deficits noted. No signs and/or symptoms reported regarding the musculoskeletal system. Injury Description: Bruise. Historical: - Allergies: 23:20 No Known Allergies; aj1 - Home Meds: 23:20 furosemide 20 mg Oral tab 1 tab once daily [Active]; glipizide 10 mg Oral tab three aj1 times a day [Active]; hydroxyzine HCl 25 mg Oral tab every 6 hours for Urticaria [Active]; insulin NPH and regular human 60 units subcutaneous twice a day [Active]; lactulose 10 gram/15 mL (15 mL) Oral soln 30 mL 3 times per day [Active]; magnesium oxide 400 mg Oral tab three times a day [Active]; metformin 1,000 mg Oral tab 1 tab 2 times per day [Active]; omeprazole 20 mg Oral cpDR 1 cap once daily [Active]; pravastatin 40 mg Oral tab nightly [Active]; propranolol 20 mg Oral tab 2 times per day [Active]; spironolactone 50 mg Oral tab 1 tab once daily [Active]; thiamine HCl (vitamin B1) 100 mg Oral tab daily [Active]; Xifaxan 550 mg Oral tab 1 tab 2 times per day [Active]; - PMHx: 23:20 Cirrhosis; Diabetes - IDDM; esophageal varices; Hepatitis C; Hypertension; aj1 - Immunization history:: Adult Immunizations unknown. - Social history:: Smoking status: Patient uses tobacco products, smokes one pack cigarettes per day. - Ebola Screening: : No symptoms or risks identified at this time. Screenin:23 Abuse screen: Denies threats or abuse. Nutritional screening: No deficits noted. aj1 Tuberculosis screening: No symptoms or risk factors identified. Fall Risk Fall in past 12 months (25 points). Assessment: 23:23 Reassessment: No changes from previously documented assessment. aj1 07/01 00:47 Reassessment: Patient appears in no apparent distress at this time. No changes from tl3 previously documented assessment. Patient and/or family updated on plan of care and expected duration. Pain level reassessed. Patient is alert, oriented x 3, equal unlabored respirations, skin warm/dry/pink. pt sleeping, arouses easily. Vital Signs: 06/30 23:20 BP 124 / 69; Pulse 116; Resp 20; Pulse Ox 98% on R/A; aj1 23:32 BP 124 / 64; Pulse 110; Resp 20; Pulse Ox 97% on R/A; aj1 07/01 00:47 BP 133 / 73; Pulse 104; Resp 18; Pulse Ox 99% on R/A; tl3 01:53 BP 126 / 68; Pulse 96; Resp 16; Pulse Ox 98% on R/A; rv ED Course: 06/30 22:45 Patient arrived in ED. es 22:57 Triage completed. aj1 23:07 Irving Hubbard MD is Attending Physician. tw4 23:20 Arm band placed on right wrist. aj1 23:23 Patient has correct armband on for positive identification. Bed in low position. Call aj1 light in reach. Side rails up X2. supply aide on. Pulse ox on. NIBP on. 23:23 No provider procedures requiring assistance completed. pt transported to CT after Dr ana Hubbard assessed pt. Inserted saline lock: 20 gauge in right forearm, using aseptic technique. Blood collected. 23:29 Head C Spine Mpr Wo Con In Process Unspecified. EDMS 23:30 Patient moved back from [place]. aj1 07/01 01:54 IV discontinued, bleeding controlled, No redness/swelling at site. Pressure dressing rv applied. Administered Medications: No medications were administered Outcome: 01:42 Discharge ordered by . tw4 01:53 Discharged to home ambulatory. rv 01:53 Condition: good 01:53 Discharge instructions given to patient, Instructed on discharge instructions, follow up and referral plans. medication usage, Demonstrated understanding of instructions, follow-up care, medications, Prescriptions given X 1. 01:54 Patient left the ED. rv Signatures: Dispatcher [employer] EDTX Nicole Crespo RN RN aj1 Marie Pavon Terrence, MD MD tw4 Fabi Resendiz RN RN tl3 Nate Scott, YVON RN rv Corrections: (The following items were deleted from the chart) 06/30 23:02 22:51 Presenting complaint: Patient states: He was sitting on a bed at at a friend's [facility] house and he started feeling sleepy and then he passed out, Hematoma noted to forehead. Laceration noted to forehead. States that his blood sugars have been running high and he drank Coke. Friends that were with the patient states that he tensed up and started seizing [address] here aj
[2018-07-01 02:51] VITALS: BP 126/68; O2SAT 98
--- NOTE | 2018-07-01 07:58 | RAD REPORT ---
EXAM DESCRIPTION: CT - Head C Spine Mpr Wo Con - 07/01/2018 5:52 am CLINICAL HISTORY: Head and neck injury status post fall. Head and neck pain COMPARISON: None. TECHNIQUE: Computed axial tomography of the head and cervical spine was obtained. Sagittal and coronal reconstruction was performed.Preliminary report generated by virtual radiologic and reviewed prior to dictation All CT scans are performed using dose optimization technique as appropriate and may include automated exposure control or mA/KV adjustment according to patient size. FINDINGS: Left frontal scalp swelling. An intracranial bleed is not seen. The ventricles are normal in caliber. An extra-axial fluid collect ion is not noted.Fluid within the visualized sinuses and mastoids is not seen A cervical fracture is not visualized. No dislocation is noted. Spondylosis involves the cervical spi ne IMPRESSION: No acute intracranial abnormality is seen. A cervical fracture is not visualized. If the patient continues to have symptoms to suggest intracra nial /spinal cord pathology then MRI would be recommended
== END 2018-07-01 01:54 | disposition home or self-care (01) ==
LOC: ER 22:43
DX: S06.0X0A Concussion without loss of consciousness, initial encounter (principal); W06.XXXA Fall from bed, initial encounter; Y93.89 Activity, other specified; Y92.9 Unspecified place or not applicable; I10 Essential (primary) hypertension; E11.9 Type 2 diabetes mellitus without complications; Z79.4 Long term (current) use of insulin
CPT/HCPCS: 36415; 70450; 72125; 80048; 82962; 85025; 99285

== ENCOUNTER 2019-01-15 01:39 | Emergency (ER) | payer OTHER, SELFPAY ==
--- OUTSIDE RECORDS SUMMARY | 2019-01-15 01:43 | XMS REPORT ---
:1965 [facility] [address] [place] [address] Care Team Providers Name Role Phone DR NADEEN HILLMAN Unavailable Unavailable Problems This patient has no known problems. Allergies, Adverse Reactions, Alerts This patient has no known allergies or adverse reactions. Medications This patient has no known medications. Encounters Start End Encounter Admission Attending Care Care Encounter Date/Time Date/Time Type Type Clinicians Facility Department ID 2018-07-28 2018-07-29 Outpatient [facility] [place] [id number] 09:49:00 14:59:00 NADEEN Results Test Description Test Time Test Comments Text Results Atomic Results Result Comments AMMONIA BLOOD 2018-07-29 03:56:00 Test Item Value Reference Range Comments AMMONIA (test code=54A) 122 umol/L 11-32 BASIC METABOLIC [id number] 03:56:00 Test Item Value Reference Range Comments GLUCOSE (test code=06D) 181 mg/dL 75-100 SODIUM (test code=01A) 137 mmol/L 136-145 POTASSIUM (test code=01B) 3.1 mmol/L 3.6-5.1 CHLORIDE (test code=04A) 105 mmol/L 98-107 CO2 (test code=02A) 27 mmol/L 22-32 ANION GAP (test code=ANG) 8.1 mmol/L BUN (test code=05D) 11 mg/dL 7-18 CREATININE (test code=03E) 0.8 mg/dL 0.7-1.3 BUN/CREA (test code=BCR) 14 12-20 CALCIUM (test code=09D) 7.7 mg/dL 8.3-9.5 CBC (INCLUDES AUTOMATED DIFFERENTIAL)2018-07-29 03:38:00 Test Item Value Reference Range Comments WBC (test code=WBC) 5.1 10\S\3/uL 4.5-11.0 RBC (test code=RBC) 3.25 10\S\6/uL 4.20-5.60 HGB (test code=HBG) 10.1 g/dL 14.0-18.0 HCT (test code=HCT) 30.2 % 35.0-46.0 MCV (test code=MCV) 92.9 fL 80.0-94.0 MCH (test code=MCH) 31.1 pg 27.0-31.0 MCHC (test code=MCHC) 33.4 g/dL 32.0-36.0 RDW (test code=RDW) 17.3 % 11.5-14.5 PLT (test code=PLT) 97 10\S\3/uL 130-400 MPV (test code=MPV) 10.5 fL 9.4-12.4 NEUTROP # (test code=NE#) 3.2 10\S\3/uL 2.0-8.0 LYMPH # (test code=LY#) 1.1 10\S\3/uL 1.2-4.0 MONOCYTE # (test code=MO#) 0.5 10\S\3/uL 0.0-1.1 EOSINOPH # (test code=EO#) 0.2 10\S\3/uL 0.0-0.7 BASOPHIL # (test code=BA#) 0.0 10\S\3/uL 0.0-0.3 IG # (test code=IG#) 0.02 10\S\3/uL 0.00-0.06 NRBC # (test code=NRBC#) 0.00 10\S\3/uL 0.00-0.01 NEUTROPH % (test code=NE%) 63.1 % 35.0-73.0 LYMPH % (test code=LY%) 22.2 % 20.0-55.0 MONO % (test code=MO%) 10.0 % 2.5-10.0 EOSINOPH % (test code=EO%) 3.5 % 0.0-5.0 BASOPHIL % (test code=BA%) 0.8 % 0.0-2.0 IG % (test code=IG%) 0.4 % 0.0-0.8 NRBC% (test code=NRBC%) 0.0 % 0.0-0.2 MANDIFF (test code=MDIFF) NO NO RBC MORPH (test code=RBCMOR) NORMAL URINALYSIS WITH [id number] 14:40:00 Test Item Value Reference Range Comments COLOR (test code=COLU) YELLOW YELLOW CLARITY (test code=CLA) SLT HAZY CLEAR GLUCOSE UR (test code=UA GLUCOSE) 2+ NEGATIVE BILI UR (test code=BILE) NEGATIVE NEGATIVE KETONES UR (test code=OKSANA) NEGATIVE NEGATIVE SP GRAVITY (test code=SPGR) 1.023 1.005-1.030 PH UR (test code=PH) 6.0 4.5-8.0 PROTEIN UR (test code=PU) NEGATIVE NEGATIVE UROBIL UR (test code=UROQ) 2.0 EU/dL 0.2-1.0 NITRITE UR (test code=NITRITE) NEGATIVE NEGATIVE BLOOD UR (test code=UA BLOOD) NEGATIVE NEGATIVE LEUK ES UR (test code=LEUK) NEGATIVE NEGATIVE WBC UR (test code=UWBC) 0 /HPF 0-3 RBC UR (test code=URBC) 0 /HPF 0-2 EPITH UR (test code=UEPC) FEW /LPF NONE BACTERIA UR (test code=UBACT) NONE /HPF NONE CAST UR (test code=CAST) HYALINE FEW /LPF NONE CRYSTAL UR (test code=CRYU) / LPF NONE MUCUS UR (test code=MUC) / HPF NONE AMORPH UR (test code=JAYLEN) / HPF NONE TRICH UR (test code=UTRICH) /HPF NONE YEAST UR (test code=UY) /HPF NONE SPERM UR (test code=USPERM) /HPF NONE DRUGS OF [id number] 14:35:00 Test Item Value Reference Range Comments DRUG SCRN (test code=HDOA) URINE DRUG SCREEN This is an unconfirmed screening result and should not be used for non-medical purposes CANNABINOD (test code=88C) Negative NEGATIVE AMPHETAMINE (test code=84A) POSITIVE NEGATIVE BENZODIAZP (test code=86A) Negative NEGATIVE BARBITURAT (test code=85A) Negative NEGATIVE OPIATES (test code=92B) Negative NEGATIVE COCAINE (test code=87A) POSITIVE NEGATIVE PHENCYCLID (test code=66A) Negative NEGATIVE METHADONE (test code=64A) Negative NEGATIVE DOAH (test code=DOAH.) URINE DRUG SCREEN Cut-off values are as follows: Cannabinoids 50 ng/mL Cocaine 300 ng/mL Amphetamines 1000 ng/mL Phencyclidine 25 ng/mL Benzodiazepines 200 ng.mL Methadone 300 ng/mL Barbiturates 200 ng/mL Opiates 2000 ng/mL GLUCOMETER GLUCOSE- LAB USE [id number] 11:41:00 Test Item Value Reference Range Comments GLUCOMETER (test code=GMG) 238 mg/dL 70-100 Meter ID: [id number]: [id number] HILDA DE PAZ ALCOHOL BLOOD (ETOH)2018-07-28 09:36:00 Test Item Value Reference Range Comments ETOH (test code=HALC) ETHANOL The result is to be used only for medical purposes ALCOHOL (test code=56A) <10 mg/dL <=10 COMPREHENSIVE METABOLIC [id number] 09:32:00 Test Item Value Reference Range Comments GLUCOSE (test code=06D) 285 mg/dL 75-100 SODIUM (test code=01A) 136 mmol/L 136-145 POTASSIUM (test code=01B) 3.5 mmol/L 3.6-5.1 CHLORIDE (test code=04A) 103 mmol/L 98-107 CO2 (test code=02A) 24 mmol/L 22-32 ANION GAP (test code=ANG) 12.5 mmol/L BUN (test code=05D) 25 mg/dL 7-18 CREATININE (test code=03E) 1.0 mg/dL 0.7-1.3 BUN/CREA (test code=BCR) 26 12-20 CALCIUM (test code=09D) 8.6 mg/dL 8.3-9.5 BILI TOTAL (test code=11A) 2.6 mg/dL 0.2-1.0 PROTEIN (test code=07D) 7.5 g/dL 6.4-8.2 ALBUMIN (test code=08D) 2.7 g/dL 3.5-4.8 GLOBULIN (test code=GLB) 4.8 g/dL 1.5-3.8 ALB/GLOB (test code=AGRR) 0.6 1.0-2.6 ALK PHOS (test code=35A) 244 IU/L 42-121 AST (test code=30A) 44 IU/L <=42 ALT (test code=31A) 26 IU/L <=78 [id number] 09:27:00 Test Item Value Reference Range Comments MAGNESIUM (test code=48A) 1.7 mg/dL 1.8-2.4 AMMONIA [id number] 09:25:00 Test Item Value Reference Range Comments AMMONIA (test code=54A) 129 umol/L 11-32 CBC (INCLUDES AUTOMATED DIFFERENTIAL)2018-07-28 09:10:00 Test Item Value Reference Range Comments WBC (test code=WBC) 5.3 10\S\3/uL 4.5-11.0 RBC (test code=RBC) 3.60 10\S\6/uL 4.20-5.60 HGB (test code=HBG) 11.0 g/dL 14.0-18.0 HCT (test code=HCT) 33.5 % 35.0-46.0 MCV (test code=MCV) 93.1 fL 80.0-94.0 MCH (test code=MCH) 30.6 pg 27.0-31.0 MCHC (test code=MCHC) 32.8 g/dL 32.0-36.0 RDW (test code=RDW) 17.3 % 11.5-14.5 PLT (test code=PLT) 113 10\S\3/uL 130-400 MPV (test code=MPV) 10.6 fL 9.4-12.4 NEUTROP # (test code=NE#) 3.5 10\S\3/uL 2.0-8.0 LYMPH # (test code=LY#) 0.9 10\S\3/uL 1.2-4.0 MONOCYTE # (test code=MO#) 0.7 10\S\3/uL 0.0-1.1 EOSINOPH # (test code=EO#) 0.2 10\S\3/uL 0.0-0.7 BASOPHIL # (test code=BA#) 0.1 10\S\3/uL 0.0-0.3 IG # (test code=IG#) 0.02 10\S\3/uL 0.00-0.06 NRBC # (test code=NRBC#) 0.00 10\S\3/uL 0.00-0.01 NEUTROPH % (test code=NE%) 65.5 % 35.0-73.0 LYMPH % (test code=LY%) 16.8 % 20.0-55.0 MONO % (test code=MO%) 13.6 % 2.5-10.0 EOSINOPH % (test code=EO%) 2.8 % 0.0-5.0 BASOPHIL % (test code=BA%) 0.9 % 0.0-2.0 IG % (test code=IG%) 0.4 % 0.0-0.8 NRBC% (test code=NRBC%) 0.0 % 0.0-0.2 MANDIFF (test code=MDIFF) NO NO RBC MORPH (test code=RBCMOR) NORMAL Venous Blood [id number] 09:03:00 Test Item Value Reference Range Comments VpH (test code=VPHRT) 7.361 7.300-7.400 VpCO2 (test code=SVJX7DG) 43.2 mmHg 40.0-50.0 VpO2 (test code=VPO2RT) 48.0 mmHg 30.0-40.0 HCO3? (test code=HCO3) 23.9 mmol/L 22.0-26.0 ALEXSANDER (test code=ALEXSANDER) -1.0 mmol/L -3.0-3.0 tHb (test code=THBRT) 10.6 g/dL 14.0-18.0 vsO2 (test code=VSO2RT) 78.5 % 55.0-75.0 FO2Hb (test code=QU0RKKDY) 75.6 % FCOHb (test code=FCOHBRTV) 2.5 % FMetHb (test code=FMETHBRTV) 1.3 % ABGTEMP (test code=ABGTEMP) * Temp Corrected Values* ABGTEMP (test code=ABGTEMP.) 37.0 ?C pH (T) (test code=PHTEMPV) 7.361 7.300-7.400 pCO2 (T) (test code=GDO1SZKYQ) 43.2 mmHg 40.0-50.0 pO2 (T) (test code=GE4LFXJN) 48.0 mmHg 30.0-40.0 Device (test code=DEVICE) ROOM AIR FI02 (test code=FI02) 21.0 % Liter_flow (test code=LF) VENPAR (test code=VENPAR) * Ventilator Parameters * SIMV (test code=SIMV) A/C (test code=A/C) CPAP (test code=CPAP) PEEP (test code=PEEP) PS (test code=PS) PIP (test code=PIP) I_Time (test code=ITIME) Vt (test code=VT) BIPAP INSP (test code=BIPAPINP) BIPAP EXP (test code=BIPAPEXP) SAMPLE SITE (test code=SSITE) Vein COMMENT (test code=CO) XR CHEST 1 VIEW [id number] 08:38:12Portable AP chest, 1 viewLocation Code: [id number] HISTORY: Infectious diseaseCOMPARISON: NoneCOMMENT: Mild atelectasis is present with the lung bases. There is no consolidation oreffusion. The cardiomediastinal silhouette is unremarkable. The bones areintact.IMPRESSION: Mild bibasilar atelectasis. Otherwise, no acute abnormality
[2019-01-15 02:30] LABS: Absolute Lymphocytes (CBC) 0.8 K/uL (0.7-4.9); Basophils % 1.2 % (0-1.3); Eosinophils % 3.8 % (0-4.4); Hematocrit 35.1 % (39.6-49.0); Lymphocytes % 18.7 % (15.3-44.8); MPV 8.4 fL (7.6-11.3); Monocytes % 9.1 % (3.3-12.3); RBC Red Blood Cell Count 3.78 M/uL (4.33-5.43)
[2019-01-15] MEDS ORDERED: METHYLPREDNISOLONE 125 MG INJ ONE (02:35)
[2019-01-15] MEDS ORDERED: DIPHENHYDRAMINE 50 MG/ML VIAL ONE (02:35)
[2019-01-15] MEDS ORDERED: FAMOTIDINE 20 MG/2 ML VIAL IV ONE (02:36)
[2019-01-15] MEDS ORDERED: NA CHLORIDE 0.9% 1,000 ML ONE (02:36)
[2019-01-15] MEDS ORDERED: predniSONE 20 MG TAB ONE (02:36)
[2019-01-15 02:51] LABS: ALT/SGPT 23 U/L (12-78); AST/SGOT 40 U/L (15-37); Albumin 2.6 g/dL (3.4-5.0); Alkaline Phosphatase 231 U/L (45-117); BUN Blood Urea Nitrogen 11 mg/dL (7-18); Bicarbonate 27 mmol/L (21-32); Glucose Level 144 mg/dL (74-106); Lipase 168 U/L (73-393); NT PRO-BNP 11 pg/mL (<125); Potassium 3.7 mmol/L (3.5-5.1); Protein, Total 8.2 g/dL (6.4-8.2); Sodium Level 139 mmol/L (136-145); Troponin (Emerg Dept Use Only) < 0.02 ng/mL (0.0-0.045)
--- NOTE | 2019-01-15 03:39 | ER ---
Nurse's Notes [facility] Name: Mega Mcpherson Age: 53 yrs Sex: Male : 1965 Arrival Date: 01/15/2019 Time: 01:40 Bed 24 Private MD: Diagnosis: Urticaria;Dyspnea;Unspecified cirrhosis of liver-hepatitis c Presentation: 01/15 01:47 Presenting complaint: Patient states: he woke up just [employer] with hives all over his aa1 abdomen and felt a tightness in his chest and life he couldn't catch his breath. NAD noted. RA O2 sat 100%. Hives noted to torso. Transition of care: pt currently in police custody with [place]. Onset: The symptoms/episode began/occurred just prior to arrival. Anaphylaxis evaluation, no signs or symptoms of anaphylaxis were noted. Onset of symptoms was January 15, 2019. Risk Assessment: Do you want to hurt yourself or someone else? Patient reports no desire to harm self or others. Initial Sepsis Screen: Does the patient meet any 2 criteria? No. Patient's initial sepsis screen is negative. Does the patient have a suspected source of infection? No. Patient's initial sepsis screen is negative. Care prior to arrival: Medication(s) given: Benadryl 25 mg IVP IV initiated. 18 GA, in the left antecubital area, Glucose check: 155. 01:47 Method Of Arrival: EMS: [facility] aa1 01:47 Acuity: ELISABETH 3 aa1 Historical: - Allergies: 01:52 No Known Allergies; aa1 - PMHx: 01:52 Cirrhosis; Diabetes - IDDM; esophageal varices; Hepatitis C; Hypertension; aa1 - PSHx: 01:52 None; aa1 - Immunization history:: Last tetanus immunization: unknown. - Social history:: Smoking status: Patient uses tobacco products, denies chronic smoking, but will smoke occasionally. - Family history:: not pertinent. - Ebola Screening: : No symptoms or risks identified at this time. Screenin:54 Abuse screen: Denies threats or abuse. Denies injuries from another. Nutritional aa1 screening: No deficits noted. Tuberculosis screening: No symptoms or risk factors identified. Fall Risk None identified. Assessment: 01:54 General: Appears in no apparent distress. comfortable, Behavior is calm, cooperative, aa1 appropriate for age. Pain: Denies pain. Neuro: Level of Consciousness is awake, alert, obeys commands, Oriented to person, place, time, situation, Moves all extremities. Speech is normal. Cardiovascular: Heart tones S1 S2 present Rhythm is regular. Respiratory: Airway is patent Respiratory effort is even, unlabored, Respiratory pattern is regular, symmetrical, Breath sounds are clear bilaterally. GI: No signs and/or symptoms were reported involving the gastrointestinal system. : No signs and/or symptoms were reported regarding the genitourinary system. EENT: No signs and/or symptoms were reported regarding the EENT system. Derm: Skin is intact, is healthy with good turgor, Skin is pink, warm \T\ dry. Musculoskeletal: Circulation, motion, and sensation intact. Capillary refill < 3 seconds. 04:02 Reassessment: Patient appears in no apparent distress at this time. Patient is alert, aa1 oriented x 3, equal unlabored respirations, skin warm/dry/pink. Discussed d/c \T\ f/u instructions with pt; denies questions or concerns at this time Patient states feeling better. Vital Signs: 01:52 BP 153 / 68; Pulse 73; Resp 18; Temp 98.4; Pulse Ox 100% on R/A; Weight 83.91 kg; aa1 Height 5 ft. 8 in. (172.72 cm); Pain 0/10; 03:08 BP 159 / 67; Pulse 79; Resp 18; Pulse Ox 99% on R/A; Pain 0/10; aa1 04:02 BP 163 / 82; Pulse 81; Resp 18; Temp 98.1; Pulse Ox 98% on R/A; Pain 0/10; aa1 01:52 Body Mass Index 28.13 (83.91 kg, 172.72 cm) aa1 ED Course: 01:40 Patient arrived in ED. ds1 01:40 Ankush Boykin MD is Attending Physician. tina 01:44 Cristy Jacinto RN is Primary Nurse. aa1 01:51 Triage completed. aa1 01:52 Arm band placed on right wrist. Patient placed in an exam room, on a stretcher. aa1 01:54 Patient has correct armband on for positive identification. Bed in low position. Call aa1 light in reach. Pulse ox on. NIBP on. 02:00 Chest Single View XRAY In Process Unspecified. EDMS 04:02 No provider procedures requiring assistance completed. IV discontinued, intact, aa1 bleeding controlled, No redness/swelling at site. Pressure dressing applied. Administered Medications: 02:27 Drug: predniSONE 40 mg Route: PO; aa1 04:05 Follow up: Response: No adverse reaction; Marked relief of symptoms aa1 02:30 Drug: NS 0.9% 1000 ml Route: IV; Rate: 1 bolus; Site: left antecubital; aa1 04:05 Follow up: IV Status: Completed infusion; IV Intake: 1000ml aa1 02:30 Drug: SOLU-Medrol 125 mg Route: IVP; Site: left antecubital; aa1 04:05 Follow up: Response: No adverse reaction; Marked relief of symptoms aa1 02:32 Drug: Pepcid 40 mg Route: IVP; Site: left antecubital; aa1 04:05 Follow up: Response: No adverse reaction; Marked relief of symptoms aa1 02:33 Drug: Benadryl 25 mg Route: IVP; Site: left antecubital; aa1 04:05 Follow up: Response: No adverse reaction; Marked relief of symptoms aa1 02:36 Not Given (Other Intervention Used): Benadryl 50 mg IVP once aa1 Intake: 04:05 IV: 1000ml; Total: 1000ml. aa1 Outcome: 03:38 Discharge ordered by . tina 04:02 Discharged to Law Enforcement aa1 04:02 Condition: good 04:02 Discharge instructions given to patient, police, Instructed on discharge instructions, follow up and referral plans. medication usage, Demonstrated understanding of instructions, follow-up care, medications, Prescriptions given X 4. 04:06 Patient left the ED. aa1 Signatures: Dispatcher [employer] EDMS Cristy Jacinto RN RN aa1 Ankush Boykin MD MD cha [place], Demi ds1
--- NOTE | 2019-01-15 03:39 | EDPHYS ---
Physician Documentation [facility] Name: Mega Mcpherson Age: 53 yrs Sex: Male : 1965 Arrival Date: 01/15/2019 Time: 01:40 Bed 24 Private MD: ED Physician Ankush Boykin HPI: 01/15 01:43 This 53 yrs old Male presents to ER via Unassigned with complaints of Allergic tina Reaction. 01:43 The patient presents with dizziness, rash, redness of skin, shortness of breath. Onset: tina The symptoms/episode began/occurred just prior to arrival, this morning. Associated signs and symptoms: The patient has no apparent associated signs or symptoms. Possible causes: The patient has no known obvious cause for the symptoms. At home the patient or guardian has treated the symptoms with Benadryl. Severity of symptoms: At their worst the symptoms were mild moderate in the emergency department the symptoms have improved mildly. The patient has not experienced similar symptoms in the past. Historical: - Allergies: 01:52 No Known Allergies; aa1 - PMHx: 01:52 Cirrhosis; Diabetes - IDDM; esophageal varices; Hepatitis C; Hypertension; aa1 - PSHx: 01:52 None; aa1 - Immunization history:: Last tetanus immunization: unknown. - Social history:: Smoking status: Patient uses tobacco products, denies chronic smoking, but will smoke occasionally. - Family history:: not pertinent. - Ebola Screening: : No symptoms or risks identified at this time. ROS: 01:43 Constitutional: Negative for fever, chills, and weight loss, Eyes: Negative for injury, tina pain, redness, and discharge, ENT: Negative for injury, pain, and discharge, Neck: Negative for injury, pain, and swelling, Cardiovascular: Negative for chest pain, palpitations, and edema, Abdomen/GI: Negative for abdominal pain, nausea, vomiting, diarrhea, and constipation, Back: Negative for injury and pain, : Negative for injury, bleeding, discharge, and swelling, MS/Extremity: Negative for injury and deformity, Neuro: Negative for headache, weakness, numbness, tingling, and seizure, Psych: Negative for depression, anxiety, suicide ideation, homicidal ideation, and hallucinations, Allergy/Immunology: Negative for hives, rash, and allergies, Endocrine: Negative for neck swelling, polydipsia, polyuria, polyphagia, and marked weight changes, Hematologic/Lymphatic: Negative for swollen nodes, abnormal bleeding, and unusual bruising. 01:43 Respiratory: Positive for shortness of breath. 01:43 Skin: Positive for rash. Exam: 01:43 Constitutional: This is a well developed, well nourished patient who is awake, alert, tina and in no acute distress. Head/Face: Normocephalic, atraumatic. Eyes: Pupils equal round and reactive to light, extra-ocular motions intact. Lids and lashes normal. Conjunctiva and sclera are non-icteric and not injected. Cornea within normal limits. Periorbital areas with no swelling, redness, or edema. ENT: Nares patent. No nasal discharge, no septal abnormalities noted. Tympanic membranes are normal and external auditory canals are clear. Oropharynx with no redness, swelling, or masses, exudates, or evidence of obstruction, uvula midline. Mucous membranes moist. Neck: Trachea midline, no thyromegaly or masses palpated, and no cervical lymphadenopathy. Supple, full range of motion without nuchal rigidity, or vertebral point tenderness. No Meningismus. Chest/axilla: Normal chest wall appearance and motion. Nontender with no deformity. No lesions are appreciated. Abdomen/GI: Soft, non-tender, with normal bowel sounds. No distension or tympany. No guarding or rebound. No evidence of tenderness throughout. Back: No spinal tenderness. No costovertebral tenderness. Full range of motion. Male : Normal genitalia with no discharge or lesions. Skin: Warm, dry with normal turgor. Normal color with no rashes, no lesions, and no evidence of cellulitis. 01:43 Cardiovascular: Rate: normal, Rhythm: regular, Pulses: Pulses are 4+ in bilateral radial, brachial, femoral, popliteal, posterior tibial and and dorsalis pedis arteries.. Heart sounds: normal, Edema: is not appreciated, JVD: is not appreciated. 01:46 Musculoskeletal/extremity: DVT Exam: No signs of deep vein thrombosis. no pain, no tina swelling, no tenderness, negative Homans' sign noted on exam, no appreciated bluish discoloration, no erythema, no increased warmth. Vital Signs: 01:52 BP 153 / 68; Pulse 73; Resp 18; Temp 98.4; Pulse Ox 100% on R/A; Weight 83.91 kg; aa1 Height 5 ft. 8 in. (172.72 cm); Pain 0/10; 03:08 BP 159 / 67; Pulse 79; Resp 18; Pulse Ox 99% on R/A; Pain 0/10; aa1 04:02 BP 163 / 82; Pulse 81; Resp 18; Temp 98.1; Pulse Ox 98% on R/A; Pain 0/10; aa1 01:52 Body Mass Index 28.13 (83.91 kg, 172.72 cm) [facility] MDM: 01:46 Data reviewed: vital signs, nurses notes, lab test result(s), EKG, radiologic studies. [facility] 01:47 Patient medically screened. [facility] 01/15 01:43 Order name: CBC with Diff [facility] 01/15 01:43 Order name: Comprehensive Metabolic Panel [facility] 01/15 01:43 Order name: Lipase; Complete Time: 03:35 [facility] 01/15 01:43 Order name: Troponin (emerg Dept Use Only); Complete Time: 03:35 [facility] 01/15 01:43 Order name: BNP; Complete Time: 03:35 [facility] 01/15 01:44 Order name: CBC with Automated Diff; Complete Time: 03:35 EDMS 01/15 01:43 Order name: Chest Single View XRAY [facility] 01/15 01:44 Order name: Comprehensive Metabolic Panel; Complete Time: 03:35 EDMS 01/15 01:43 Order name: EKG; Complete Time: 01:44 [facility] 01/15 01:43 Order name: EKG - Nurse/Tech; Complete Time: 02:18 [facility] Administered Medications: 02:27 Drug: predniSONE 40 mg Route: PO; aa1 04:05 Follow up: Response: No adverse reaction; Marked relief of symptoms aa1 02:30 Drug: NS 0.9% 1000 ml Route: IV; Rate: 1 bolus; Site: left antecubital; aa1 04:05 Follow up: IV Status: Completed infusion; IV Intake: 1000ml aa1 02:30 Drug: SOLU-Medrol 125 mg Route: IVP; Site: left antecubital; aa1 04:05 Follow up: Response: No adverse reaction; Marked relief of symptoms aa1 02:32 Drug: Pepcid 40 mg Route: IVP; Site: left antecubital; aa1 04:05 Follow up: Response: No adverse reaction; Marked relief of symptoms aa1 02:33 Drug: Benadryl 25 mg Route: IVP; Site: left antecubital; aa1 04:05 Follow up: Response: No adverse reaction; Marked relief of symptoms aa1 02:36 Not Given (Other Intervention Used): Benadryl 50 mg IVP once aa1 Disposition: 01/15/19 03:38 Discharged to Home. Impression: Urticaria, Dyspnea, Unspecified cirrhosis of liver - hepatitis c. - Condition is Stable. - Discharge Instructions: Hives, Aspirin and Your Heart, Hives, [id number]. - Prescriptions for Benadryl 25 mg Oral Capsule - take 1 capsule by ORAL route every 6 hours As needed; 30 tablet. Pepcid 20 mg Oral Tablet - take 1 tablet by ORAL route every 12 hours for 10 days; 20 tablet. Prednisone 20 mg Oral Tablet - take 2 tablet by ORAL route once daily for 5 days; 10 tablet. EpiPen 0.3 mg Injection auto- injector - inject 1 pen by INTRAMUSCULAR route one time Inject into the outer portion of the thigh, through clothing if necessary. Indicated in the emergency treatment of allergic reactions; 1 Container. - Medication Reconciliation Form, Thank You Letter, Antibiotic Education, Prescription Opioid Use form. - Follow up: Private Physician; When: 2 - 3 days; Reason: Recheck today's complaints, Continuance of care, Re-evaluation by your physician. - Problem is new. - Symptoms have improved. Signatures: Dispatcher [employer] Cristy Recio RN RN aa1 Ankush Boykin MD MD cha Corrections: (The following items were deleted from the chart) 04:06 03:38 01/15/2019 03:38 Discharged to Home. Impression: Urticaria; Dyspnea; Unspecified aa1 cirrhosis of liver - hepatitis c. Condition is Stable. Discharge Instructions: Hives, Aspirin and Your Heart, Hives, [id number]. Prescriptions for Benadryl 25 mg Oral Capsule - take 1 capsule by ORAL route every 6 hours As needed; 30 tablet, Pepcid 20 mg Oral Tablet - take 1 tablet by ORAL route every 12 hours for 10 days; 20 tablet, Prednisone 20 mg Oral Tablet - take 2 tablet by ORAL route once daily for 5 days; 10 tablet, EpiPen 0.3 mg Injection auto-injector - inject 1 pen by INTRAMUSCULAR route one time Inject into the outer portion of the thigh, through clothing if necessary. Indicated in the emergency treatment of allergic reactions; 1 Container. and Forms are Medication Reconciliation Form, Thank You Letter, Antibiotic Education, Prescription Opioid Use. Follow up: Private Physician; When: 2 - 3 days; Reason: Recheck today's complaints, Continuance of care, Re-evaluation by your physician. Problem is new. Symptoms have improved. tina
--- NOTE | 2019-01-15 06:53 | EKG ---
Test Date: 2019-01-15 Test Time: 02:08:25 Make Ready Worker: SHAKA MEASUREMENT RESULTS: Intervals: Rate: 72 IA: 158 QRSD: 82 QT: 410 QTc: 448 Arnold: P: 30 IA: 158 QRS: 44 T: 61 INTERPRETIVE STATEMENTS: Normal sinus rhythm Septal infarct, age undetermined Abnormal ECG Compared to ECG 04/06/2018 23:33:07 No significant changes Electronically Signed On 01-15-19 06:53:00 CDT by Phillip Padilla
--- NOTE | 2019-01-15 08:52 | RAD REPORT ---
EXAM DESCRIPTION: RAD - Chest Single View - 01/15/2019 2:01 am CLINICAL HISTORY: Chest pain COMPARISON: March 2018 TECHNIQUE: AP portable chest image was obtained 0157 hours . FINDINGS: No dense mass or consolidation. Interstitial markings in each base are prominent but not c learly different from comparison. Heart size and upper lobe vasculature within normal limits and hillary lar to comparison. No measurable pleural effusion and no pneumothorax. No acute bony abnormality seen . No acute aortic findings suspected. IMPRESSION: No acute cardiopulmonary process. Lung markings, heart and vasculature all similar to 2016.
[2019-01-15 20:39] VITALS: BP 163/82; TEMP 98.1; O2SAT 98
== END 2019-01-15 04:06 | disposition home or self-care (01) ==
LOC: ER 01:39
DX: L50.9 Urticaria, unspecified (principal); K74.60 Unspecified cirrhosis of liver; B19.20 Unspecified viral hepatitis C without hepatic coma; I10 Essential (primary) hypertension; Z72.0 Tobacco use
CPT/HCPCS: 36415; 71045; 80053; 83690; 83880; 84484; 85025; 93005; 96361; 96374; 96375; 99284; J2930; J7030; J7512

== ENCOUNTER 2020-02-11 07:29 | Day surgery (SDC) | payer OTHER ==
[~2020-02-11 07:29] MED LIST: FENTANYL CITR 100 MCG/2 ML ONE; KETOROLAC 30 MG/ML INJ ONE; LIDOCAINE 2% MPF 5 ML VIAL ONE; Levofloxacin500mg IV 500 MG/100 ML BAG IV ONE; MIDAZOLAM HCL 2 MG/2 ML INJ ONE; ONDANSETRON 4 MG/2 ML VIAL ONE; dexAMETHasone 10 MG/ML VIAL ONE; propofoL 200 MG/20 ML VIAL IV ONE
--- OUTSIDE RECORDS SUMMARY | 2020-02-11 07:57 | XMS REPORT | Summary of Care ---
:1965 Author Organization [facility] - Health Address [address] [place] [address] Care Team Providers Name Role Phone MOSES Menjivar Gem Carver Yessi De Luna MD Primary Care Provider Encounter Details Date Type Department Care Team Description 12/14/2019 Orders Only [facility] Doctor Unassigned, No [address] [facility] [place] [address] [address] [place] [address] Allergies No Known Allergiesdocumented as of this encounter (statuses as of 12/17/2019) Medications Medication Sig Dispensed Refills Start Date End Date Status omeprazole (PRILOSEC) Take 20 mg by 0 Active 20 mg capsule mouth daily. magnesium oxide 400 mg Take 400 mg by 0 Active tablet mouth 2 (two) times daily. furosemide (LASIX) 20 Take 1 tablet by 30 tablet 2 06/13/2018 Active mg tablet mouth daily. glipiZIDE 10 mg tablet Take 1 tablet by 60 tablet 2 06/13/2018 Active mouth 2 (two) times daily before breakfast and dinner. hydrOXYzine 25 mg Take 1 tablet by 20 tablet 0 06/13/2018 Active tablet mouth every 6 (six) hours as needed for Itching. lactulose 10 gram/15 mL Take 30 mL by 1 Bottle 11 06/13/2018 Active oral solution mouth 3 (three) times daily. pravastatin 40 mg Take 1 tablet by 30 tablet 2 06/13/2018 Active tablet mouth at bedtime. propranolol 20 mg Take 1 tablet by 60 tablet 2 06/13/2018 Active tablet mouth 2 (two) times daily. spironolactone Take 1 tablet by 30 tablet 2 06/13/2018 Active (ALDACTONE) 50 mg mouth daily. tablet thiamine 100 mg tablet Take 1 tablet by 30 tablet 1 06/13/2018 Active mouth daily. insulin NPH 100 unit/mL inject 60 Units 1 Vial 0 07/30/2018 Active injectionIndications: under the skin Type 2 diabetes every morning and mellitus without evening. complication, unspecified whether intermodal owner operator truck driver insulin use triamcinolone 0.5 % Apply to area(s) 30 g 1 04/24/2019 Active creamIndications: Rash 3 (three) times daily. ketoconazole 2 % Apply daily to 30 g 1 04/24/2019 Active creamIndications: Tinea facial rash until versicolor resolved. documented as of this encounter (statuses as of 12/17/2019) Active Problems Problem Noted Date Mass of left axilla 04/30/2019 Tobacco use 04/30/2019 Tinea versicolor 04/30/2019 Need for hepatitis B vaccination 04/25/2019 Overview: Schedule is 0, 1, and 6 mos Bleeding esophageal varices, unspecified esophageal va rices type 03/01/2017 Overview: Added automatically from request for henry tucker [id number] Iron deficiency 02/26/2017 Anemia 02/25/2017 Gastrointestinal hemorrhage with melena 02/25/2017 Overview: Added automatically from request for henry tucker [id number] Type 2 diabetes mellitus 02/21/2017 Jaundice 12/08/2016 Cirrhosis of liver 11/27/2016 Hepatic encephalopathy 11/25/2016 Symptomatic anemia 08/18/2016 documented as of this encounter (statuses as of 12/17/2019) Resolved Problems Problem Noted Date Resolved Date Altered mental state 02/23/2018 04/24/2019 Altered mental status 02/22/2018 04/24/2019 Obesity (BMI 30-39.9) 11/25/2016 04/30/2019 documented as of this encounter (statuses as of 12/17/2019) Immunizations Name Administration Dates Next Due Influenza Virus Vaccine Quad .5 mL IM 6+ MO 04/24/2019, 05/17 Influenza Virus Vaccine Quad IM 3+ YRS 11/30/2016 Pneumococcal Polysaccharide, PPSV23 (PNEUMOVAX) 11/30/2016 documented as of this encounter Social History Tobacco Use Types Packs/Day Years Used Date Current Every Day Smoker Cigarettes 0.25 Smokeless Tobacco: Never Used Alcohol Use Drinks/Week oz/Week Comments Not Currently quit in 2016- ta rted at 17 yrs of age Sex Assigned at Date Recorded Not on file Job Start Date Occupation Industry Not on file Not on file Not on file Travel History Travel Start Travel End No recent travel history available. documented as of this encounter Last Filed Vital Signs Not on filedocumented in this encounter Plan of Treatment Health Maintenance Due Date Last Done Comments EYE EXAM 1976 URINE MICROALBUMIN 1976 DTaP,Tdap,and Td Vaccines (1 - 1977 Tdap) FOOT EXAM 1984 COLONOSCOPY 2016 Zoster Recombinant Vaccine 2016 (SHINGRIX) (1 of 2) HgA1C 10/24/2019 04/24/2019, 02/22/2018, 02/26/2017, Additional history exists CREATININE (SERUM) 04/24/2020 04/24/2019, 02/26/2018, 02/25/2018, Additional history exists Depression Screening 04/24/2020 04/24/2019 LDL-C 04/24/2020 04/24/2019, 02/25/2018 PNEUMOCOCCAL 0-64 YEARS COMBINED Completed 11/30/2016 SERIES INFLUENZA VACCINE Completed 04/24/2019, 06/13/2018, 11/30/2016 documented as of this encounter Procedures Procedure Name Priority Date/Time Associated Diagnosis Comme nts AUTHORIZATION FOR RELEASE Routine 12/14/2019 12:01 AM OF PHI CDT documented in this encounter Results Not on filedocumented in this encounter Insurance Payer Benefit Plan / Subscriber ID Effective Dates Phone Addre ss Type Group MEDICARE MEDICARE PART xxxxxxxxxxx 2018-[place]ato [id number] [place] [id number] documented as of this encounter
--- OUTSIDE RECORDS SUMMARY | 2020-02-11 07:57 | XMS REPORT | Continuity of Care Document ---
:1965 Author Organization [facility] t Address [address] [place] [address] Care Team Providers Name Role Phone Doctor Unassigned, Name Attending Clinician Unavailable DR KADY Attending Clinician Unavailable DR KADY Admitting Clinician Unavailable Problems This patient has no known problems. Allergies, Adverse Reactions, Alerts This patient has no known allergies or adverse reactions. Medications This patient has no known medications. Procedures This patient has no known procedures. Encounters Start End Encounter Admission Attending Care Care Encounter Source Date/Time Date/Time Type Type Clinicians Facility Department ID 2019-12-14 2019-12-14 Orders Doctor WILIAN [id number] 04 00:00:00 00:00:00 Only Unassigned, DEVYN [id number] [place] [facility] [id number] 2018-07-28 2018-07-29 Outpatient E TAMARA HILLMAN TELE [id number] [address] 09:49:00 14:59:00 [facility] Results Test Description Test Time Test Comments Results Result Comments Source AMMONIA BLOOD 2018-07-29 03:56:00 Test Item Value Reference Range Interpretation Comme nts AMMONIA (test code = 54A) 122 umol/L 11-32 H BASIC METABOLIC [id number] 03:56:00 Test Item Value Reference Range Interpretation Comments GLUCOSE (test code = 06D) 181 mg/dL 75-100 H SODIUM (test code = 01A) 137 mmol/L 136-145 POTASSIUM (test code = 01B) 3.1 mmol/L 3.6-5.1 L CHLORIDE (test code = 04A) 105 mmol/L 98-107 CO2 (test code = 02A) 27 mmol/L 22-32 ANION GAP (test code = ANG) 8.1 mmol/L BUN (test code = 05D) 11 mg/dL 7-18 CREATININE (test code = 03E) 0.8 mg/dL 0.7-1.3 BUN/CREA (test code = BCR) 14 12-20 CALCIUM (test code = 09D) 7.7 mg/dL 8.3-9.5 L CBC (INCLUDES AUTOMATED DIFFERENTIAL)2018-07-29 03:38:00 Test Item Value Reference Range Interpretation Comments WBC (test code = WBC) 5.1 10\S\3/uL 4.5-11.0 RBC (test code = RBC) 3.25 10\S\6/uL 4.20-5.60 L HGB (test code = HBG) 10.1 g/dL 14.0-18.0 L HCT (test code = HCT) 30.2 % 35.0-46.0 L MCV (test code = MCV) 92.9 fL 80.0-94.0 MCH (test code = MCH) 31.1 pg 27.0-31.0 H MCHC (test code = MCHC) 33.4 g/dL 32.0-36.0 RDW (test code = RDW) 17.3 % 11.5-14.5 H PLT (test code = PLT) 97 10\S\3/uL 130-400 L MPV (test code = MPV) 10.5 fL 9.4-12.4 NEUTROP # (test code = NE#) 3.2 10\S\3/uL 2.0-8.0 LYMPH # (test code = LY#) 1.1 10\S\3/uL 1.2-4.0 L MONOCYTE # (test code = MO#) 0.5 10\S\3/uL 0.0-1.1 EOSINOPH # (test code = EO#) 0.2 10\S\3/uL 0.0-0.7 BASOPHIL # (test code = BA#) 0.0 10\S\3/uL 0.0-0.3 IG # (test code = IG#) 0.02 10\S\3/uL 0.00-0.06 NRBC # (test code = NRBC#) 0.00 10\S\3/uL 0.00-0.01 NEUTROPH % (test code = NE%) 63.1 % 35.0-73.0 LYMPH % (test code = LY%) 22.2 % 20.0-55.0 MONO % (test code = MO%) 10.0 % 2.5-10.0 EOSINOPH % (test code = EO%) 3.5 % 0.0-5.0 BASOPHIL % (test code = BA%) 0.8 % 0.0-2.0 IG % (test code = IG%) 0.4 % 0.0-0.8 NRBC% (test code = NRBC%) 0.0 % 0.0-0.2 MANDIFF (test code = MDIFF) NO NO RBC MORPH (test code = RBCMOR) NORMAL URINALYSIS WITH [id number] 14:40:00 Test Item Value Reference Range Interpretation Comments COLOR (test code = COLU) YELLOW YELLOW CLARITY (test code = CLA) SLT HAZY CLEAR A GLUCOSE UR (test code = UA 2+ NEGATIVE A GLUCOSE) BILI UR (test code = BILE) NEGATIVE NEGATIVE KETONES UR (test code = OKSANA) NEGATIVE NEGATIVE SP GRAVITY (test code = 1.023 1.005-1.030 SPGR) PH UR (test code = PH) 6.0 4.5-8.0 PROTEIN UR (test code = PU) NEGATIVE NEGATIVE UROBIL UR (test code = UROQ) 2.0 EU/dL 0.2-1.0 H NITRITE UR (test code = NEGATIVE NEGATIVE NITRITE) BLOOD UR (test code = UA NEGATIVE NEGATIVE BLOOD) LEUK ES UR (test code = NEGATIVE NEGATIVE LEUK) WBC UR (test code = UWBC) 0 /HPF 0-3 RBC UR (test code = URBC) 0 /HPF 0-2 EPITH UR (test code = UEPC) FEW /LPF NONE A BACTERIA UR (test code = NONE /HPF NONE UBACT) CAST UR (test code = CAST) HYALINE FEW /LPF NONE A CRYSTAL UR (test code = / LPF NONE CRYU) MUCUS UR (test code = MUC) / HPF NONE AMORPH UR (test code = JAYLEN) / HPF NONE TRICH UR (test code = /HPF NONE UTRICH) YEAST UR (test code = UY) /HPF NONE SPERM UR (test code = /HPF NONE USPERM) DRUGS OF [id number] 14:35:00 Test Item Value Reference Range Interpretation Comments DRUG SCRN (test code URINE DRUG SCREEN = HDOA) This is an unconfirmed screening result and should not be used for non-medical purposes CANNABINOD (test code Negative NEGATIVE = 88C) AMPHETAMINE (test POSITIVE NEGATIVE A code = 84A) BENZODIAZP (test code Negative NEGATIVE = 86A) BARBITURAT (test code Negative NEGATIVE = 85A) OPIATES (test code = Negative NEGATIVE 92B) COCAINE (test code = POSITIVE NEGATIVE A 87A) PHENCYCLID (test code Negative NEGATIVE = 66A) METHADONE (test code Negative NEGATIVE = 64A) DOAH (test code = DOAH.) *URINE DRUG SCREEN Cut-off values are as follows: Cannabinoids 50 ng/mL Cocaine 300 ng/mL Amphetamines 1000 ng/mL Phencyclidine 25 ng/mL Benzodiazepines 200 ng.mL Methadone 300 ng/mL Barbiturates 200 ng/mL Opiates 2000 ng/mL GLUCOMETER GLUCOSE- LAB USE [id number] 11:41:00 Test Item Value Reference Range Interpretation Comments GLUCOMETER (test code = 238 mg/dL 70-100 H Mete r ID: GMG) [id number] tor: [id number] HILDA SEALS ALCOHOL BLOOD (ETOH)2018-07-28 09:36:00 Test Item Value Reference Range Interpretation Comments ETOH (test code = HALC) ETHANOL The result is to be used only for medical purposes ALCOHOL (test code = <10 mg/dL <=10 56A) COMPREHENSIVE METABOLIC [id number] 09:32:00 Test Item Value Reference Range Interpretation Comments GLUCOSE (test code = 06D) 285 mg/dL 75-100 H SODIUM (test code = 01A) 136 mmol/L 136-145 POTASSIUM (test code = 01B) 3.5 mmol/L 3.6-5.1 L CHLORIDE (test code = 04A) 103 mmol/L 98-107 CO2 (test code = 02A) 24 mmol/L 22-32 ANION GAP (test code = ANG) 12.5 mmol/L BUN (test code = 05D) 25 mg/dL 7-18 H CREATININE (test code = 03E) 1.0 mg/dL 0.7-1.3 BUN/CREA (test code = BCR) 26 12-20 H CALCIUM (test code = 09D) 8.6 mg/dL 8.3-9.5 BILI TOTAL (test code = 11A) 2.6 mg/dL 0.2-1.0 H PROTEIN (test code = 07D) 7.5 g/dL 6.4-8.2 ALBUMIN (test code = 08D) 2.7 g/dL 3.5-4.8 L GLOBULIN (test code = GLB) 4.8 g/dL 1.5-3.8 H ALB/GLOB (test code = AGRR) 0.6 1.0-2.6 L ALK PHOS (test code = 35A) 244 IU/L 42-121 H AST (test code = 30A) 44 IU/L <=42 H ALT (test code = 31A) 26 IU/L <=78 [id number] 09:27:00 Test Item Value Reference Range Interpretation Comments MAGNESIUM (test code = 48A) 1.7 mg/dL 1.8-2.4 L AMMONIA [id number] 09:25:00 Test Item Value Reference Range Interpretation Comments AMMONIA (test code = 54A) 129 umol/L 11-32 H CBC (INCLUDES AUTOMATED DIFFERENTIAL)2018-07-28 09:10:00 Test Item Value Reference Range Interpretation Comments WBC (test code = WBC) 5.3 10\S\3/uL 4.5-11.0 RBC (test code = RBC) 3.60 10\S\6/uL 4.20-5.60 L HGB (test code = HBG) 11.0 g/dL 14.0-18.0 L HCT (test code = HCT) 33.5 % 35.0-46.0 L MCV (test code = MCV) 93.1 fL 80.0-94.0 MCH (test code = MCH) 30.6 pg 27.0-31.0 MCHC (test code = MCHC) 32.8 g/dL 32.0-36.0 RDW (test code = RDW) 17.3 % 11.5-14.5 H PLT (test code = PLT) 113 10\S\3/uL 130-400 L MPV (test code = MPV) 10.6 fL 9.4-12.4 NEUTROP # (test code = NE#) 3.5 10\S\3/uL 2.0-8.0 LYMPH # (test code = LY#) 0.9 10\S\3/uL 1.2-4.0 L MONOCYTE # (test code = MO#) 0.7 10\S\3/uL 0.0-1.1 EOSINOPH # (test code = EO#) 0.2 10\S\3/uL 0.0-0.7 BASOPHIL # (test code = BA#) 0.1 10\S\3/uL 0.0-0.3 IG # (test code = IG#) 0.02 10\S\3/uL 0.00-0.06 NRBC # (test code = NRBC#) 0.00 10\S\3/uL 0.00-0.01 NEUTROPH % (test code = NE%) 65.5 % 35.0-73.0 LYMPH % (test code = LY%) 16.8 % 20.0-55.0 L MONO % (test code = MO%) 13.6 % 2.5-10.0 H EOSINOPH % (test code = EO%) 2.8 % 0.0-5.0 BASOPHIL % (test code = BA%) 0.9 % 0.0-2.0 IG % (test code = IG%) 0.4 % 0.0-0.8 NRBC% (test code = NRBC%) 0.0 % 0.0-0.2 MANDIFF (test code = MDIFF) NO NO RBC MORPH (test code = RBCMOR) NORMAL Venous Blood [id number] 09:03:00 Test Item Value Reference Range Interpretation Comments VpH (test code = 7.361 7.300-7.400 VPHRT) VpCO2 (test code = 43.2 mmHg 40.0-50.0 [id number]) VpO2 (test code = 48.0 mmHg 30.0-40.0 H VPO2RT) HCO3? (test code = 23.9 mmol/L 22.0-26.0 HCO3) ALEXSANDER (test code = ALEXSANDER) -1.0 mmol/L -3.0-3.0 tHb (test code = 10.6 g/dL 14.0-18.0 L THBRT) vsO2 (test code = 78.5 % 55.0-75.0 H VSO2RT) FO2Hb (test code = 75.6 % SD2SVSPU) FCOHb (test code = 2.5 % FCOHBRTV) FMetHb (test code = 1.3 % FMETHBRTV) ABGTEMP (test code = * Temp Corrected Values* ABGTEMP) ABGTEMP (test code = 37.0 ?C ABGTEMP.) pH (T) (test code = 7.361 7.300-7.400 PHTEMPV) pCO2 (T) (test code = 43.2 mmHg 40.0-50.0 BTT1EDLCX) pO2 (T) (test code = 48.0 mmHg 30.0-40.0 H [id number]) Device (test code = ROOM AIR DEVICE) FI02 (test code = 21.0 % FI02) Liter_flow (test code = LF) VENPAR (test code = * Ventilator Parameters VENPAR) * SIMV (test code = SIMV) A/C (test code = A/C) CPAP (test code = CPAP) PEEP (test code = PEEP) PS (test code = PS) PIP (test code = PIP) I_Time (test code = ITIME) Vt (test code = VT) BIPAP INSP (test code = BIPAPINP) BIPAP EXP (test code = BIPAPEXP) SAMPLE SITE (test Vein code = SSITE) COMMENT (test code = CO) XR CHEST 1 VIEW [id number] 08:38:12Portable AP chest, 1 viewLocation Code: [id number] HISTORY: Infectious diseaseCOMPARISON: NoneCOMMENT: Mild atelectasis is present with the lung bases. There is no consolidation oreffusion. The cardiomediastinal silhouette is unremarkable. The bones areintact.IMPRESSION: Mild bibasilar atelectasis. Otherwise, no acute abnormality
[2020-02-11] MEDS ORDERED: NA CHLORIDE 0.9% 1,000 ML ONE (08:34)
[2020-02-11] MEDS ORDERED: CEFAZOLIN/SWI 1gm 1 GM/10 ML SYR ONE (08:35)
[2020-02-11] MEDS ORDERED: dexAMETHasone 10 MG/ML VIAL ONE (10:55)
[2020-02-11] MEDS ORDERED: FENTANYL CITR 100 MCG/2 ML ONE (10:55)
[2020-02-11] MEDS ORDERED: propofoL 200 MG/20 ML VIAL IV ONE (10:55)
[2020-02-11] MEDS ORDERED: MIDAZOLAM HCL 2 MG/2 ML INJ ONE (10:55)
[2020-02-11] MEDS ORDERED: KETOROLAC 30 MG/ML INJ ONE (10:56)
[2020-02-11] MEDS ORDERED: LIDOCAINE 2% MPF 5 ML VIAL ONE (10:56)
[2020-02-11] MEDS ORDERED: ONDANSETRON 4 MG/2 ML VIAL ONE (10:56)
[2020-02-11] MEDS ORDERED: BUPIVACA 0.25%/EPI 0.0005%/PF 30 ML VIAL IJ ONE (11:14)
--- NOTE | 2020-02-11 11:42 | P.OP ---
Preoperative diagnosis: LEFT Axillary and RIGHT Axillary Masses Postoperative diagnosis: LEFT Axillary and RIGHT Axillary Masses Primary procedure: Excisional Biopsy of LEFT Axillary and RIGHT Axillary Masses Anesthesia: GETA + Local Estimated blood loss: <10cc Specimen: LEFT Axillary and RIGHT Axillary Masses Findings: Large LEFT axillary mass ~3cm, Right 1cm axillary mass Complications: None Transferred to: Recovery Room Condition: Good
[2020-02-11] MEDS ORDERED: D50W 25 GM/50 ML SYRINGE/VIAL IV PRN (12:15)
[2020-02-11] MEDS ORDERED: D50W 25 GM/50 ML SYRINGE/VIAL IV ONE (12:33)
[2020-02-11] MEDS ORDERED: CODEINE 30MG/APAP 300MG TAB ONE (13:16)
[2020-02-11 14:34] VITALS: BP 136/66; TEMP 98; O2SAT 100
--- NOTE | 2020-02-11 21:49 | OP ---
Date of Procedure: 02/11/2020 Surgeon: Zachary Garcia MD, Preoperative Diagnoses: Left axillary and right axillary masses. Postoperative Diagnoses: Left axillary and right axillary masses. Procedure Performed: Excisional biopsy of left axillary and right axillary masses. Anesthesia: General endotracheal plus local with 0.25% Marcaine with epinephrine. Estimated Blood Loss: . Specimens: Left axillary and right axillary masses. Findings: Large left axillary mass approximately 3 cm in size and a right axillary mass approximatel y 1 cm in size. Complications: None. Disposition: Transferred to recovery room in good condition. Procedure In Detail: After informed was obtained, the patient was brought to the operating room, pre pped and draped in the usual sterile fashion. After adequate anesthesia was achieved, anesthetized t he area of the left axilla down to subcutaneous tissues. I incised the skin and took an ellipse of s kin out overlying an approximately 3 to 4 cm round firm mass, which is felt cystic in structure. I c ircumferentially dissected around the mass using a 15 blade down to the subcutaneous tissues. Electr ocautery was used to dissect circumferentially around this until ultimately it was removed with an el lipse of skin overlying the top. It was in the subcutaneous position, not entering the substance of the axilla, but into the fat plane only. It did not extend into the pectoral fascia. The mass was t hen sent off for pathologic examination. Hemostasis was achieved with electrocautery. The area was copiously irrigated multiple times until completely clear and the skin was then closed with an interr upted 2-0 nylon suture with good approximation of the tissues. I then turned my attention to the rig ht axillary mass, which was found to be approximately 1 cm in size. Similarly, this area was anesthe tized with 0.25% Marcaine, sharply incised with a 15 blade down to subcutaneous tissues and a small e llipse of skin down through subcutaneous tissues and into the subcutaneous fat. I dissected out this 1 cm mass using electrocautery and sent off for pathologic examination. The area was copiously irri gated. Hemostasis was achieved with electrocautery and the area was closed with interrupted 3-0 nylo n suture with good apposition of the tissue and good approximation. Sterile dressing was placed over top. The patient tolerated the procedure well without evidence of complication and transferred to P ACU in good condition. All counts were correct at the end of the case. BRETT/ADONIS Voice ID: [id number] Report ID: [id number]
== END 2020-02-11 13:35 | disposition home or self-care (01) ==
LOC: OR 07:29
PROVIDERS: ATTEND Surgery
PROC: 0JBD0ZX Excision of Right Upper Arm Subcutaneous Tissue and Fascia, Open Approach, Diagnostic (ICD-10-PCS; 2020-02-11)
PROC: 0JBF0ZX Excision of Left Upper Arm Subcutaneous Tissue and Fascia, Open Approach, Diagnostic (ICD-10-PCS; principal; 2020-02-11 10:00)
DX: L72.0 Epidermal cyst (principal); I85.10 Secondary esophageal varices without bleeding; K74.60 Unspecified cirrhosis of liver; E11.9 Type 2 diabetes mellitus without complications; B19.20 Unspecified viral hepatitis C without hepatic coma; F17.210 Nicotine dependence, cigarettes, uncomplicated; Z79.4 Long term (current) use of insulin; Z11.59 Encounter for screening for other viral diseases
CPT/HCPCS: 11404; 11401; 82947 ×3; 88304; U0002 ×3; J2704 ×2; J2250 ×2; J3010 ×2; J1100 ×2; J0690; J7030; J2405 ×2; 88305

== ENCOUNTER 2020-02-17 13:24 | Observation (INO) | payer OTHER ==
--- OUTSIDE RECORDS SUMMARY | 2020-02-17 13:26 | XMS REPORT | Continuity of Care Document ---
:1965 Author Organization [facility] t Address [address] [place] [address] Care Team Providers Name Role Phone Doctor [...] Facility Department ID 2019-12-14 2019-12-14 Orders Doctor WLIIAN [id number] 00:00:00 00:00:00 Only Unassigned, DEVYN [id number] [place] [facility] [id number] 2018-07-28 2018-07-29 Outpatient E TAMARA HILLMAN [facility] [id number] [place] 09:49:00 14:59:00 [facility] Results Test Description Test Time Test Comments Results Result Comments Source AMMONIA BLOOD 2018-07-29 03:56:00 Test Item Value Reference Range Interpretation Comme nts AMMONIA (test code = 54A) 122 umol/L 11-32 H BASIC METABOLIC [id number] 03:56:00 Test Item Value Reference Range Interpretation [...] (test code = RBCMOR) NORMAL URINALYSIS WITH [id number] 14:40:00 Test Item Value Reference Range Interpretation [...] code = /HPF NONE USPERM) DRUGS OF [id number] 14:35:00 Test Item Value Reference Range Interpretation [...] Opiates 2000 ng/mL GLUCOMETER GLUCOSE- LAB USE [id number] 11:41:00 Test Item Value Reference Range Interpretation Comments GLUCOMETER (test code = 238 mg/dL 70-100 H Mete r ID: GMG) [id number] tor: [id number] HILDA CHOWDARY BOZENA ALCOHOL BLOOD (ETOH)2018-07-28 09:36:00 Test Item Value Reference Range Interpretation Comments ETOH (test code = HALC) ETHANOL The result is to be used only for medical purposes ALCOHOL (test code = <10 mg/dL <=10 56A) COMPREHENSIVE METABOLIC [id number] 09:32:00 Test Item Value Reference Range Interpretation [...] (test code = 31A) 26 IU/L <=78 [id number] 09:27:00 Test Item Value Reference Range Interpretation Comments MAGNESIUM (test code = 48A) 1.7 mg/dL 1.8-2.4 L AMMONIA [id number] 09:25:00 Test Item Value Reference Range Interpretation [...] (test code = RBCMOR) NORMAL Venous Blood [id number] 09:03:00 Test Item Value Reference Range Interpretation Comments VpH (test code = 7.361 7.300-7.400 VPHRT) VpCO2 (test code = 43.2 mmHg 40.0-50.0 [id number]) VpO2 (test code = 48.0 mmHg 30.0-40.0 H VPO2RT) HCO3? (test code = 23.9 mmol/L 22.0-26.0 HCO3) ALEXSANDER (test code = ALEXSANDER) -1.0 mmol/L -3.0-3.0 tHb (test code = 10.6 g/dL 14.0-18.0 L THBRT) vsO2 (test code = 78.5 % 55.0-75.0 H VSO2RT) FO2Hb (test code = 75.6 % [id number]) FCOHb (test code = 2.5 % FCOHBRTV) FMetHb (test code = 1.3 % FMETHBRTV) ABGTEMP (test code = * Temp Corrected Values* ABGTEMP) ABGTEMP (test code = 37.0 ?C ABGTEMP.) pH (T) (test code = 7.361 7.300-7.400 PHTEMPV) pCO2 (T) (test code = 43.2 mmHg 40.0-50.0 [id number]) pO2 (T) (test code = 48.0 mmHg 30.0-40.0 H [id number]) Device (test code = ROOM AIR DEVICE) [...] code = CO) XR CHEST 1 VIEW [id number] 08:38:12Portable AP chest, 1 viewLocation Code: [id number] HISTORY: Infectious diseaseCOMPARISON: NoneCOMMENT: Mild atelectasis is present with the lung bases. There is no consolidation oreffusion. The cardiomediastinal silhouette is unremarkable. The bones areintact.IMPRESSION: Mild bibasilar atelectasis. Otherwise, no acute abnormality
[2020-02-17 14:02] LABS: Absolute Lymphocytes (CBC) 1.2 K/uL (0.7-4.9); Basophils % 0.8 % (0-1.3); Hematocrit 40.7 % (39.6-49.0); Lymphocytes % 15.3 % (15.3-44.8); MPV 9.2 fL (7.6-11.3)
[2020-02-17 14:03] LABS: Protime INR 1.1
--- NOTE | 2020-02-17 14:12 | RAD REPORT ---
EXAM DESCRIPTION: CT - Head Brain Wo Cont - 02/17/2020 1:48 pm CLINICAL HISTORY: Alteration of awareness/confusion COMPARISON: 2018 TECHNIQUE: Computed axial tomography of the head was obtained. IV contrast was not requested. All CT scans are performed using dose optimization technique as appropriate and may include automated exposure control or mA/KV adjustment according to patient size. FINDINGS: An intracranial bleed is not seen . The ventricles are normal in caliber. No extra-axial fluid collection is noted. Mild to moderate low-density areas within periventricular, deep and subcortical white matter likely r epresent ischemic changes secondary to small vessel disease. Fluid within the sinuses/ mastoids is not seen. IMPRESSION: No acute intracranial abnormality is seen. If patient's symptoms persist MRI of the bra in would be recommended.
[2020-02-17] MEDS ORDERED: NA CHLORIDE 0.9% 1,000 ML ONE (14:29)
--- NOTE | 2020-02-17 14:38 | RAD REPORT ---
EXAM DESCRIPTION: Tavia Single View02/17/2020 1:56 pm CLINICAL HISTORY: cough COMPARISON: 2019 FINDINGS: The lungs appear clear of acute infiltrate. The heart is normal size IMPRESSION: No acute abnormalities displayed
[2020-02-17 14:44] LABS: ALT/SGPT 28 U/L (12-78); Alkaline Phosphatase 246 U/L (45-117); BUN Blood Urea Nitrogen 9 mg/dL (7-18); Bicarbonate 19 mmol/L (21-32); Bilirubin Direct 0.7 mg/dL (0-0.2); Bilirubin Total 2.2 mg/dL (0.2-1.0); Glucose Level 368 mg/dL (74-106); Lipase 296 U/L (73-393); NT PRO-BNP 16 pg/mL (<125); Protein, Total 8.5 g/dL (6.4-8.2); Sodium Level 138 mmol/L (136-145); Troponin (Emerg Dept Use Only) < 0.02 ng/mL (0.0-0.045)
[2020-02-17 14:46] LABS: AST/SGOT 31 U/L (15-37); Magnesium 1.9 mg/dL (1.8-2.4); Potassium 4.4 mmol/L (3.5-5.1)
--- NOTE | 2020-02-17 14:48 | EDPHYS ---
Physician Documentation [facility] Name: Asif Mcpherson Age: 54 yrs Sex: Male : 1965 Arrival Date: 02/17/2020 Time: 13:25 Bed 7 Private MD: ED Physician Ankush Boykin HPI: 02/16 14:40 This 54 yrs old Male presents to ER via EMS with complaints of Altered Mental tina Status. 14:40 The patient presents with confusion, decreased mental status, decreased responsiveness. tina Onset: The symptoms/episode began/occurred 3 day(s) ago. Possible causes: alcohol, has a history of chronic alcohol abuse. Associated signs and symptoms: The patient has no apparent associated signs or symptoms. Current symptoms: In the emergency department the patient's symptoms are unchanged from the initial presentation. Patient's baseline: Neuro: alert and fully oriented. The patient has experienced similar episodes in the past, multiple times. Historical: - Allergies: 13:42 No Known Allergies; jr10 - Home Meds: 13:42 furosemide 20 mg Oral tab 1 tab once daily [Active]; glipizide 10 mg Oral tab three jr10 times a day [Active]; hydroxyzine HCl 25 mg Oral tab every 6 hours for Urticaria [Active]; insulin NPH and regular human 60 units subcutaneous twice a day [Active]; lactulose 10 gram/15 mL (15 mL) Oral soln 30 mL 3 times per day [Active]; magnesium oxide 400 mg Oral tab three times a day [Active]; metformin 1,000 mg Oral tab 1 tab 2 times per day [Active]; omeprazole 20 mg Oral cpDR 1 cap once daily [Active]; pravastatin 40 mg Oral tab nightly [Active]; propranolol 20 mg Oral tab 2 times per day [Active]; spironolactone 50 mg Oral tab 1 tab once daily [Active]; thiamine HCl (vitamin B1) 100 mg Oral tab daily [Active]; Xifaxan 550 mg Oral tab 1 tab 2 times per day [Active]; - PMHx: 13:42 Cirrhosis; Diabetes - IDDM; esophageal varices; Hepatitis C; Hypertension; jr10 - Immunization history:: Adult Immunizations unknown, Adult Immunizations. - Social history:: Smoking status: unknown Patient uses alcohol, on a daily basis. reports last drink 2 days ago. ROS: 14:41 Constitutional: Negative for fever, chills, and weight loss, Eyes: Negative for injury, tina pain, redness, and discharge, ENT: Negative for injury, pain, and discharge, Neck: Negative for injury, pain, and swelling, Cardiovascular: Negative for chest pain, palpitations, and edema, Respiratory: Negative for shortness of breath, cough, wheezing, and pleuritic chest pain, Abdomen/GI: Negative for abdominal pain, nausea, vomiting, diarrhea, and constipation, Back: Negative for injury and pain, : Negative for injury, bleeding, discharge, and swelling, MS/Extremity: Negative for injury and deformity, Skin: Negative for injury, rash, and discoloration, Psych: Negative for depression, anxiety, suicide ideation, homicidal ideation, and hallucinations, Allergy/Immunology: Negative for hives, rash, and allergies, Endocrine: Negative for neck swelling, polydipsia, polyuria, polyphagia, and marked weight changes, Hematologic/Lymphatic: Negative for swollen nodes, abnormal bleeding, and unusual bruising. 14:41 Neuro: Positive for altered mental status, weakness. Exam: 14:41 Constitutional: This is a well developed, well nourished patient who is awake, alert, tina and in no acute distress. Head/Face: Normocephalic, atraumatic. Eyes: Pupils equal round and reactive to light, extra-ocular motions intact. Lids and lashes normal. Conjunctiva and sclera are non-icteric and not injected. Cornea within normal limits. Periorbital areas with no swelling, redness, or edema. ENT: Nares patent. No nasal discharge, no septal abnormalities noted. Tympanic membranes are normal and external auditory canals are clear. Oropharynx with no redness, swelling, or masses, exudates, or evidence of obstruction, uvula midline. Mucous membranes moist. Neck: Trachea midline, no thyromegaly or masses palpated, and no cervical lymphadenopathy. Supple, full range of motion without nuchal rigidity, or vertebral point tenderness. No Meningismus. Chest/axilla: Normal chest wall appearance and motion. Nontender with no deformity. No lesions are appreciated. Cardiovascular: Regular rate and rhythm with a normal S1 and S2. No gallops, murmurs, or rubs. Normal PMI, no JVD. No pulse deficits. Respiratory: Lungs have equal breath sounds bilaterally, clear to auscultation and percussion. No rales, rhonchi or wheezes noted. No increased work of breathing, no retractions or nasal flaring. Abdomen/GI: Soft, non-tender, with normal bowel sounds. No distension or tympany. No guarding or rebound. No evidence of tenderness throughout. Back: No spinal tenderness. No costovertebral tenderness. Full range of motion. Male : Normal genitalia with no discharge or lesions. Skin: Warm, dry with normal turgor. Normal color with no rashes, no lesions, and no evidence of cellulitis. MS/ Extremity: Pulses equal, no cyanosis. Neurovascular intact. Full, normal range of motion. Psych: Awake, alert, with orientation to person, place and time. Behavior, mood, and affect are within normal limits. 14:41 Neuro: Orientation: to person, place, Not oriented to time, situation, Mentation: slow to respond, confused, Memory: unable to test, Cranial nerves: is grossly normal based on the patient's age, no acute changes, Cerebellar function: is grossly normal, is grossly normal based on the patient's age, no acute changes, Motor: is normal, is grossly normal based on the patient's age, no acute changes, moves all fours, Sensation: is normal, no obvious gross deficits, appropriate no acute changes, Gait: not applicable Deep tendon reflexes are 2+ (normal) in the bilateral brachioradialis, bicep, tricep and patellar and Achilles tendons, Babinski testing is normal, seizure activity, is not displayed by the patient. 14:48 ECG was reviewed by the Attending Physician. [facility] Vital Signs: 13:25 BP 130 / 72; Pulse 96; Resp 16; Temp 98.7(TE); Pulse Ox 95% on R/A; Pain 0/10; jr10 14:40 BP 151 / 75; Pulse 105; Resp 20; Pulse Ox 100% on R/A; jr10 16:00 BP 164 / 76; Pulse 92; Resp 16; Pulse Ox 98% ; bp 16:30 BP 133 / 50; Pulse 91; Resp 20; Pulse Ox 100% on R/A; Pain 0/10; jr10 MDM: 13:28 Patient medically screened. [facility] 14:44 Data reviewed: vital signs, nurses notes, lab test result(s), EKG, radiologic studies, [facility] CT scan, plain films. 14:44 Differential Diagnosis: electrolyte abnormality, alcohol intoxication, hypoglycemia, tina intracranial bleed, overdose, pneumonia. Data interpreted: publication editor: not applicable for this patient encounter. rate is 105 beats/min, Pulse oximetry: on is 100 %. Test interpretation: by ED physician or midlevel provider: ECG, plain radiologic studies. Counseling: I had a detailed discussion with the patient and/or guardian regarding: the historical points, exam findings, and any diagnostic results supporting the discharge/admit diagnosis, lab results, radiology results, the need for further work-up and treatment in the hospital. ED course: iddm, and cirrhosis... hepatic encepholopathy, admit dr lugo. 02/16 13:33 Order name: Basic Metabolic Panel; Complete Time: 14:52 [facility] 02/16 13:33 Order name: CBC with Diff; Complete Time: 14:30 [facility] 02/16 13:33 Order name: LFT's; Complete Time: 14:52 [facility] 02/16 13:33 Order name: Magnesium; Complete Time: 14:52 [facility] 02/16 13:33 Order name: NT PRO-BNP; Complete Time: 14:52 [facility] 02/16 13:33 Order name: PT-INR; Complete Time: 14:30 [facility] 02/16 13:33 Order name: Troponin (emerg Dept Use Only); Complete Time: 14:52 [facility] 02/16 13:33 Order name: Blood Culture Adult (2) [facility] 02/16 13:33 Order name: AMMONIA; Complete Time: 14:30 [facility] 02/16 13:33 Order name: Lipase; Complete Time: 14:52 [facility] 02/16 13:49 Order name: Glucose, Ancillary Testing; Complete Time: 14:30 EDMS 02/16 14:46 Order name: Asprin bd 02/16 14:46 Order name: ETOH Level bd 02/16 14:46 Order name: Tylenol Level bd 02/16 13:33 Order name: XRAY Chest (1 view); Complete Time: 14:52 [facility] 02/16 13:33 Order name: EKG; Complete Time: 13:34 [facility] 02/16 13:33 Order name: Cardiac monitoring; Complete Time: 14:11 tina 02/16 13:33 Order name: EKG - Nurse/Tech; Complete Time: 14:32 [facility] 02/16 13:33 Order name: IV Saline Lock; Complete Time: 14:11 [facility] 02/16 13:33 Order name: Labs collected and sent; Complete Time: 14:11 [facility] 02/16 13:33 Order name: O2 Per Protocol; Complete Time: 14:11 [facility] 02/16 13:33 Order name: CT Head Brain wo Cont; Complete Time: 14:30 [facility] 02/16 14:52 Order name: Urine Dipstick--Ancillary (enter results) 02/16 17:01 Order name: Glucose, Ancillary Testing EDSD 02/16 13:33 Order name: O2 Sat Monitoring; Complete Time: 14:11 [facility] 02/16 13:33 Order name: Urine Dipstick-Ancillary (obtain specimen); Complete Time: 17:03 [facility] EC:48 Rate is 107 beats/min. Rhythm is regular. QRS [place] is Normal. CA interval is normal. tina QRS interval is normal. QT interval is normal. No Q waves. T waves are Normal. No ST changes noted. Clinical impression: Sinus tachycardia and No evidence of ischemia. Interpreted by me. Reviewed by me. Administered Medications: 14:32 Drug: NS 0.9% 1000 ml Route: IV; Rate: 125 ml/hr; Site: left forearm; 10 14:52 Drug: Lactulose 60 grams Volume: 45 ml; Route: PO; jr10 15:20 Follow up: Response: No adverse reaction 15:18 Drug: Insulin Regular Human 8 units {Co-Signature: bp (Wilmer Ta RN).} Route: IVP; Site: right antecubital; 16:01 Follow up: Response: No adverse reaction bp 16:36 Follow up: Response: No adverse reaction 10 15:18 Drug: NS 0.9% 1000 ml Route: IV; Rate: 1 bolus; Site: left forearm; jr10 16:01 Follow up: IV Status: Completed infusion; IV Intake: 1000ml bp 16:36 Follow up: Response: No adverse reaction; IV Status: Completed infusion 10 15:20 Drug: Thiamine 100 mg Route: IV; Rate: per protocol; Site: left forearm; jr10 16:00 Follow up: IV Status: Completed infusion; IV Intake: 100ml bp 16:37 Follow up: Response: No adverse reaction; IV Status: Completed infusion 10 15:45 Drug: LanTUS 30 units Route: Sub-Q; Site: right lower abdomen; bp 16:01 Follow up: Response: No adverse reaction bp 16:36 Follow up: Response: No adverse reaction jr10 Disposition: 02/17/20 14:47 Hospitalization ordered by Prince Berry for Inpatient Admission. Preliminary diagnosis are Encephalopathy, unspecified - hepatic, Type 1 diabetes mellitus, Alcohol abuse, Altered mental status, unspecified. - Bed requested for Telemetry/MedSurg (Inpatient). - Status is Inpatient Admission. jr10 - Condition is Fair. - Problem is new. - Symptoms have improved. Signatures: Dispatcher [employer] EDMS Waleska Clements RN RN Ankush Conti MD MD cha Attema, Lee, DESKTOP ADMINISTRATOR-C DESKTOP ADMINISTRATOR-Cla1 Wilmer Ta RN RN bp Rivera, Jessica, RN RN jr10 Wilmer Ta RN bp Corrections: (The following items were deleted from the chart) 16:08 14:47 Hospitalization Ordered by Prince Berry [facility] for Inpatient Admission. Preliminary diagnosis is Encephalopathy, unspecified - hepatic; Type 1 diabetes mellitus; Alcohol abuse; Altered mental status, unspecified. Bed requested for Telemetry/MedSurg (Inpatient). Status is Inpatient Admission. Condition is Fair. Problem is new. Symptoms have improved. tina 17:06 16:08 02/17/2020 14:47 Hospitalization Ordered by Prince Berry [facility] for Inpatient jr10 Admission. Preliminary diagnosis is Encephalopathy, unspecified - hepatic; Type 1 diabetes mellitus; Alcohol abuse; Altered mental status, unspecified. Bed requested for Telemetry/MedSurg (Inpatient). Status is Inpatient Admission. Condition is Fair. Problem is new. Symptoms have improved. dw
--- NOTE | 2020-02-17 14:48 | ER ---
Nurse's Notes [facility] Name: Asif Mcpherson Age: 54 yrs Sex: Male : 1965 Arrival Date: 02/17/2020 Time: 13:25 Bed 7 Private MD: Diagnosis: Encephalopathy, unspecified-hepatic;Type 1 diabetes mellitus;Alcohol abuse;Altered mental status, unspecified Presentation: 02/16 13:25 Chief complaint: EMS states: Pt presents via EMS with reports of high BG, pt has hx of jr10 DM and cirrhosis. Upon arrival pt noted to be confused. Pt is noncompliant with medications per mother. Coronavirus screen: Client denies travel out of the [place] in the last 14 days. At this time, the client does not indicate any symptoms associated with coronavirus-19. Ebola Screen: No symptoms or risks identified at this time. Initial Sepsis Screen: Does the patient meet any 2 criteria? No. Patient's initial sepsis screen is negative. Does the patient have a suspected source of infection? No. Patient's initial sepsis screen is negative. Risk Assessment: Do you want to hurt yourself or someone else? Patient reports no desire to harm self or others. Onset of symptoms was February 17, 2020. 13:25 Method Of Arrival: EMS: [facility] 13:25 Acuity: ELISABETH 2 jr10 Historical: - Allergies: 13:42 No Known Allergies; jr10 - Home Meds: 13:42 furosemide 20 mg Oral tab 1 tab once daily [Active]; glipizide 10 mg Oral tab three jr10 times a day [Active]; hydroxyzine HCl 25 mg Oral tab every 6 hours for Urticaria [Active]; insulin NPH and regular human 60 units subcutaneous twice a day [Active]; lactulose 10 gram/15 mL (15 mL) Oral soln 30 mL 3 times per day [Active]; magnesium oxide 400 mg Oral tab three times a day [Active]; metformin 1,000 mg Oral tab 1 tab 2 times per day [Active]; omeprazole 20 mg Oral cpDR 1 cap once daily [Active]; pravastatin 40 mg Oral tab nightly [Active]; propranolol 20 mg Oral tab 2 times per day [Active]; spironolactone 50 mg Oral tab 1 tab once daily [Active]; thiamine HCl (vitamin B1) 100 mg Oral tab daily [Active]; Xifaxan 550 mg Oral tab 1 tab 2 times per day [Active]; - PMHx: 13:42 Cirrhosis; Diabetes - IDDM; esophageal varices; Hepatitis C; Hypertension; jr10 - Immunization history:: Adult Immunizations unknown, Adult Immunizations. - Social history:: Smoking status: unknown Patient uses alcohol, on a daily basis. reports last drink 2 days ago. Screenin:30 Abuse screen: Denies threats or abuse. Denies injuries from another. Nutritional jr10 screening: No deficits noted. Tuberculosis screening: No symptoms or risk factors identified. Fall Risk No fall in past 12 months (0 pts). Secondary diagnosis (15 points) altered mental status. IV access (20 points). Ambulatory Aid- None/Bed Rest/Nurse Assist (0 pts). Gait- Impaired (20 pts.). Mental Status- Overestimates/Forgets Limitations (15 pts.). Assessment: 13:30 Reassessment: Upon arrival pt noted to be oriented to self only. Per EMS pt was AAOx4 jr10 upon their arrival to the home. Pt reports upon arrival that he has to urinate. Uncooperative, trying to climb off stretcher, no redirectable at present. Pt given urinal and noted to urinate on floor. Pt confused at this time. Per EMS pt is normally AAOx4 at baseline. Pt has hx of cirrhosis and is reportedly noncompliant with meds. General: Appears in no apparent distress. Behavior is inappropriate for age, intermittent confusion noted. Pain: Denies pain. Neuro: Level of Consciousness is awake, alert, confused, Oriented to person. 13:45 Reassessment: Patient and/or family updated on plan of care and expected duration. Pain jr10 level reassessed. Patient is alert, oriented x 3, equal unlabored respirations, skin warm/dry/pink. Patient states symptoms have improved. pt noted to be re-oriented at present. Apologizes for urinating on floor. States that he had 2 beers 2 days ago, reports that he has not taken his lactulose in 2 months "because I don't think I need it". Pt appears in NAD. Will continue to monitor. . General: Behavior is calm, cooperative. Cardiovascular: No deficits noted. Denies chest pain. Respiratory: No deficits noted. Airway is patent Respiratory effort is even, unlabored, Respiratory pattern is regular, symmetrical, Breath sounds are clear bilaterally. GI: No deficits noted. Abdomen is non-distended, Bowel sounds present X 4 quads. Patient currently denies diarrhea, nausea, vomiting. : No deficits noted. EENT: Eyes jaundiced. Derm: No deficits noted. Musculoskeletal: No deficits noted. 14:39 Reassessment: FAMILY CONTACT INFORMATION: MONIQUE (MOTHER): [phone]. jr10 16:00 Reassessment: IVF INFUSING. PT NOW AOx4, ST ON MONITOR. bp Vital Signs: 13:25 BP 130 / 72; Pulse 96; Resp 16; Temp 98.7(TE); Pulse Ox 95% on R/A; Pain 0/10; jr10 14:40 BP 151 / 75; Pulse 105; Resp 20; Pulse Ox 100% on R/A; jr10 16:00 BP 164 / 76; Pulse 92; Resp 16; Pulse Ox 98% ; bp 16:30 BP 133 / 50; Pulse 91; Resp 20; Pulse Ox 100% on R/A; Pain 0/10; jr10 ED Course: 13:25 Patient arrived in ED. jr10 13:27 Triage completed. jr10 13:27 Arm band placed on. jr10 13:27 Patient has correct armband on for positive identification. Placed in gown. Bed in low jr10 position. Call light in reach. Side rails up X2. scuba diving teacher on. Pulse ox on. NIBP on. 13:27 No provider procedures requiring assistance completed. Maintain EMS IV. Dressing jr10 intact. Good blood return noted. Site clean \\T\\ dry. Gauge \\T\\ site: 20G right AC. 13:28 Ankush Boykin MD is Attending Physician. tina 13:43 Inserted saline lock: 20 gauge in left forearm, using aseptic technique. IV is patent, jr10 is intact, with good blood return, Flushed. 13:47 CT Head Brain wo Cont In Process Unspecified. EDMS 13:55 XRAY Chest (1 view) In Process Unspecified. EDMS 14:11 Yenifer Cintron, YVON is Primary Nurse. jr10 14:46 Prince Smart MD is Hospitalizing Provider. tina 17:05 Patient admitted, IV remains in place. bleeding controlled, No redness/swelling at jr10 site. Pressure dressing applied. Administered Medications: 14:32 Drug: NS 0.9% 1000 ml Route: IV; Rate: 125 ml/hr; Site: left forearm; jr10 14:52 Drug: Lactulose 60 grams Volume: 45 ml; Route: PO; jr10 15:20 Follow up: Response: No adverse reaction jr10 15:18 Drug: Insulin Regular Human 8 units {Co-Signature: bp (Wilmer Ta RN).} Route: IVP; jr10 Site: right antecubital; 16:01 Follow up: Response: No adverse reaction bp 16:36 Follow up: Response: No adverse reaction jr10 15:18 Drug: NS 0.9% 1000 ml Route: IV; Rate: 1 bolus; Site: left forearm; jr10 16:01 Follow up: IV Status: Completed infusion; IV Intake: 1000ml bp 16:36 Follow up: Response: No adverse reaction; IV Status: Completed infusion jr10 15:20 Drug: Thiamine 100 mg Route: IV; Rate: per protocol; Site: left forearm; jr10 16:00 Follow up: IV Status: Completed infusion; IV Intake: 100ml bp 16:37 Follow up: Response: No adverse reaction; IV Status: Completed infusion jr10 15:45 Drug: LanTUS 30 units Route: Sub-Q; Site: right lower abdomen; bp 16:01 Follow up: Response: No adverse reaction bp 16:36 Follow up: Response: No adverse reaction jr10 Intake: 16:00 IV: 100ml; Total: 100ml. bp 16:01 IV: 1000ml; Total: 1100ml. bp Outcome: 14:47 Decision to Hospitalize by Provider. tina 17:06 Admitted to Med/surg accompanied by tech, via wheelchair, room 217, with chart, Report jr10 called to Yvon Dhaliwal 17:06 Condition: stable 17:06 Instructed on the need for admit, Demonstrated understanding of instructions. 17:06 Patient left the ED. jr10 Signatures: Dispatcher [employer] Ankush Mackay MD MD cha Peltier, Brian, RN RN Yenifer To RN RN jrJosh Ta RN bp
[2020-02-17] MEDS ORDERED: LACTULOSE 20 GM/30 ML UCUP ONE (14:52)
[2020-02-17 15:00] LABS: Urine Blood 1+ (NEG); Urine Glucose 3+ (NEG); Urine Protein NEGATIVE (NEG); Urine pH 6.5 (5.0-7.0)
[2020-02-17] MEDS ORDERED: THIAMINE 200 MG/2 ML INJ ONE (15:19)
[2020-02-17] MEDS ORDERED: INSULIN -REGULAR HUMAN 50 UNIT/0.5 ML ML ONE (15:20)
--- NOTE | 2020-02-17 15:55 | P.HP ---
Certification for Inpatient Patient admitted to: Observation With expected LOS: <2 Midnights Patient will require the following post-hospital care: None Practitioner: I am a practitioner with admitting privileges, knowledge of patient current condition, hospital course, and medical plan of care. Services: Services provided to patient in accordance with Admission requirements found in Title 42 Section 412.3 of the Code of Federal Regulations Patient History Date of Service: 02/17/20 Primary Care Provider: Andre Reason for admission: Hepatic encephalopathy History of Present Illness: 57-year-old male with history of hepatitis-C, cirrhosis, diabetes mellitus type 2-insulin dependent, esophageal varices, hypertension presents the emergency department for altered mental status. Patient family reports that he has been noncompliant with medications. Initially patient was very disoriented and tried to crawl out of bed. Patient was given lactulose in the emergency department. ED workup was otherwise unremarkable. ED provider wishes to admit patient for observation. When I saw the patient in the emergency department he was awake, alert, oriented x2 unable to tell me the current year. Patient states he is being to feel better and that he had not been taking his lactulose because forgot to. Patient formed the importance of taking his daily medications. Patient also noncompliance with his care, reports that he has not seen a space control agent. Allergies No Known Allergies Allergy (Verified 01/16/20 09:33) Home Medications: Insulin NPH Hum/Reg Insulin Hm [Humulin 70/30 Kwikpen] 60 unit SQ BID 04/07/18 - Past Medical/Surgical History Diabetic: Yes -: Liver cirrhosis -: Hepatitis-C -: Esophageal varices -: Diabetes mellitus -: Cyst removal left upper extremity Psychosocial/ Personal History: Patient lives at home alone - Family History Family History: Reviewed- Non-Contributory - Social History Smoking Status: Former smoker Alcohol use: Yes CD- Drugs: No Caffeine use: No Place of Residence: Home Review of Systems 10-point ROS is otherwise unremarkable Neurological: Confusion Physical Examination - Physical Exam General: Alert, In no apparent distress HEENT: Atraumatic, PERRLA, Mucous membr. moist/pink, EOMI, Sclerae nonicteric Neck: Supple, 2+ carotid pulse no bruit, No LAD, Without JVD or thyroid abnormality Respiratory: Clear to auscultation bilaterally, Normal air movement Cardiovascular: Regular rate/rhythm, Normal S1 S2 Gastrointestinal: Normal bowel sounds, No tenderness Musculoskeletal: No tenderness Integumentary: No rashes Neurological: Normal gait, Normal speech, Normal strength at 5/5 x4 extr, Normal tone, Normal affect Lymphatics: No axilla or inguinal lymphadenopathy - Studies Laboratory Data (last 24 hrs) 02/17/20 13:35: PT 13.0 H, INR 1.10 02/17/20 13:35: WBC 8.1, Hgb 14.2, Hct 40.7, Plt Count 167 02/17/20 13:35: Sodium 138, Potassium 4.4, BUN 9, Creatinine 0.82, Glucose 368 H, Magnesium 1.9 D, Total Bilirubin 2.2 H, AST 31, ALT 28, Alkaline Phosphatase 246 H, Lipase 296 Assessment and Plan - Plan Assessment 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 Will also continue patient's home medications. Patient's mentation has improved since his presentation to emergency provided he does live alone. Patient is still not at a point where I believe he is safe to go home. Will admit for overnight observation and give lactulose. Anticipate clinical improvement next 24 hr. DVT prophylaxis with Lovenox 40 mg subcutaneous once daily. Diabetes mellitus type 2-insulin dependent: A.c. HS Accu-Cheks and sliding scale insulin therapy will continue patient's home medications were reconciled. Hypertension: Obtain and continue patient's home medications. P.r.n. medications in place at this time. History of esophageal varices: Patient currently denies any vomiting or blood in stool. Will continue to monitor closely. Discharge Plan: Home Plan to discharge in: 24 Hours - Advance Directives Does patient have a Living Will: No Does patient have a Durable POA for Healthcare: No - Code Status/Comfort Care Code Status Assessed: Yes (Patient is full code) Critical Care: No Time Spent Managing Pts Care (In Minutes): 55
[2020-02-17] MEDS ORDERED: INSULIN GLARGINE 100 UNITS/ML SQ ONE (16:07)
[2020-02-17] MEDS ORDERED: ONDANSETRON 4 MG/2 ML VIAL IV PRN (17:23)
[2020-02-17] MEDS ORDERED: HYDRALAZINE HCL 20 MG/ML VIAL IV PRN (17:23)
[2020-02-17] MEDS: INSULIN -REGULAR HUMAN 50 UNIT/0.5 ML ML SQ SCH ×2 (17:23→22:40)
[2020-02-17 17:39] VITALS: BMI 27.3
[2020-02-17] MEDS: ENOXAPARIN 40 MG/0.4 ML SQ SCH (18:16)
[2020-02-17] MEDS: LACTULOSE 20 GM/30 ML UCUP PO SCH (22:40)
[2020-02-17] MEDS: Rifaximin 550 MG Tab PO SCH (22:41)
[2020-02-18 01:45] VITALS: O2SAT 99
[2020-02-18 05:41] LABS: ALT/SGPT 22 U/L (12-78); AST/SGOT 22 U/L (15-37); Albumin 2.5 g/dL (3.4-5.0); Alkaline Phosphatase 204 U/L (45-117); BUN Blood Urea Nitrogen 9 mg/dL (7-18); Bicarbonate 26 mmol/L (21-32); Glucose Level 224 mg/dL (74-106); Potassium 3.9 mmol/L (3.5-5.1); Protein, Total 7.3 g/dL (6.4-8.2); Sodium Level 140 mmol/L (136-145)
[2020-02-18 06:22] LABS: Absolute Lymphocytes (CBC) 1.5 K/uL (0.7-4.9); Basophils % 0.9 % (0-1.3); Lymphocytes % 27.8 % (15.3-44.8); MPV 8.8 fL (7.6-11.3); RBC Red Blood Cell Count 3.56 M/uL (4.33-5.43)
[2020-02-18] MEDS ORDERED: FUROSEMIDE 20 MG TABLET PO SCH (09:00)
[2020-02-18] MEDS ORDERED: POTASSIUM CL SA 10 MEQ TAB PO ONE (09:00)
[2020-02-18 09:17] VITALS: TEMP 97.5
--- NOTE | 2020-02-18 09:21 | P.PN ---
Subjective Date of Service: 02/18/20 Primary Care Provider: Andre Chief Complaint: Hepatic encephalopathy Subjective: No new changes Patient mental status remains the same as yesterday. Patient is oriented x2, states he believes the years 2001. Patient does live by himself at this time I do not believe she is ready to go home. Review of Systems 10-point ROS is otherwise unremarkable Neurological: Confusion Physical Examination - Vital Signs Temperature: 97.5 F Blood Pressure: 131/61 Pulse: 78 Respirations: 15 Pulse Ox (%): 98 - Physical Exam General: Alert, In no apparent distress HEENT: Atraumatic, PERRLA, EOMI Neck: Supple, JVD not distended Respiratory: Clear to auscultation bilaterally, Normal air movement Cardiovascular: Regular rate/rhythm, Normal S1 S2 Gastrointestinal: Normal bowel sounds, No tenderness Musculoskeletal: No tenderness Integumentary: No rashes Neurological: Normal speech, Normal tone, Normal affect Lymphatics: No axilla or inguinal lymphadenopathy - Studies Laboratory Data (last 24 hrs) 02/17/20 13:35: PT 13.0 H, INR 1.10 02/17/20 13:35: WBC 8.1, Hgb 14.2, Hct 40.7, Plt Count 167 02/17/20 13:35: Sodium 138, Potassium 4.4, BUN 9, Creatinine 0.82, Glucose 368 H, Magnesium 1.9 D, Total Bilirubin 2.2 H, AST 31, ALT 28, Alkaline Phosphatase 246 H, Lipase 296 Medications List Reviewed: Yes Assessment & Plan Discharge Plan: Home Plan to discharge in: 24 Hours - Code Status/Comfort Care Code Status Assessed: Yes (Patient is full code) Physician Review Additional Text: Assessment 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 Will also continue patient's home medications. Patient's mentation remains the same as yesterday, ammonia has increased to 179 from 150. Patient reports he has had 2 bowel movements so far and has been taking his lactulose. Patient is still not at a point where I believe he is safe to go home. Possible discharged as early as this afternoon. DVT prophylaxis with Lovenox 40 mg subcutaneous once daily. Diabetes mellitus type 2-insulin dependent: A.c. HS Accu-Cheks and sliding scale insulin therapy will continue patient's home medications were reconciled. Hypertension: Obtain and continue patient's home medications. P.r.n. medications in place at this time. History of esophageal varices: Patient currently denies any vomiting or blood in stool. Will continue to monitor closely. Critical Care: No Time Spent Managing Pts Care (In Minutes): 55
[2020-02-18] MEDS: INSULIN -REGULAR HUMAN 50 UNIT/0.5 ML ML SQ SCH (09:28)
[2020-02-18] MEDS: LACTULOSE 20 GM/30 ML UCUP PO SCH (09:29)
[2020-02-18] MEDS: Rifaximin 550 MG Tab PO SCH (09:31)
[2020-02-18] MEDS: ENOXAPARIN 40 MG/0.4 ML SQ SCH (09:31)
[2020-02-18 09:34] VITALS: BP 131/68
--- NOTE | 2020-02-18 12:31 | P.DS ---
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 The ventricles are normal in caliber. No extra-axial fluid collection is noted. Mild to moderate low-density areas within periventricular, deep and subcortical white matter likely represent ischemic changes secondary to small vessel disease. Fluid within the sinuses/ mastoids is not seen. IMPRESSION: No acute intracranial abnormality is seen. If patient's symptoms persist MRI of the brain would be recommended. CXR FINDINGS: The lungs appear clear of acute infiltrate. The heart is normal size IMPRESSION: No acute abnormalities displayed Brief History of Present Illness: 57-year-old male with history of hepatitis-C, cirrhosis, diabetes mellitus type 2-insulin dependent, esophageal varices, hypertension presents the emergency department for altered mental status. Patient family reports that he has been noncompliant with medications. Initially patient was very disoriented and tried to crawl out of bed. Patient was given lactulose in the emergency department. ED workup was otherwise unremarkable. ED provider wishes to admit patient for observation. When I saw the patient in the emergency department he was awake, alert, oriented x2 unable to tell me the current year. Patient states he is being to feel better and that he had not been taking his lactulose because forgot to. Patient formed the importance of taking his daily medications. 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 Hospital Course: The patient was admitted, home medications were continued. Continued with lactulose overnight. This morning patient was doing well but still believed was 2002. Was planning on re-evaluating patient this afternoon for possible discharge but before I could make it back to his room he stated to the nursing staff that he had to leave immediately so he did not miss the noon by us and walked out the door. Patient he eloped. Patient vital signs were stable prior to discharge. Nursing staff did inform patient that is not discharged in attempt to get him to stay. Patient does have prescription for lactulose which she will need to be taking at home consistently. Patient reports that he has been forgetting to take it. Vital Signs/Physical Exam: Temp Pulse Resp BP Pulse Ox 97.5 F 78 15 131/68 98 02/18/20 09:21 02/18/20 09:30 02/18/20 09:21 02/18/20 09:30 02/18/20 09:21 Laboratory Data at Discharge: WBC 5.5 K/uL (4.3-10.9) D 02/18/20 05:13 Hgb 12.5 g/dL (13.6-17.9) L 02/18/20 05:13 Hct 35.0 % (39.6-49.0) L 02/18/20 05:13 Plt Count 130 K/uL (152-406) L D 02/18/20 05:13 PT 13.0 SECONDS (9.5-12.5) H 02/17/20 13:35 INR 1.10 02/17/20 13:35 Sodium 140 mmol/L (136-145) 02/18/20 05:13 Potassium 3.9 mmol/L (3.5-5.1) 02/18/20 05:13 BUN 9 mg/dL (7-18) 02/18/20 05:13 Creatinine 0.70 mg/dL (0.55-1.3) 02/18/20 05:13 Glucose 224 mg/dL (74-106) H 02/18/20 05:13 Magnesium 1.9 mg/dL (1.8-2.4) D 02/17/20 13:35 Total Bilirubin 2.0 mg/dL (0.2-1.0) H 02/18/20 05:13 AST 22 U/L (15-37) 02/18/20 05:13 ALT 22 U/L (12-78) 02/18/20 05:13 Alkaline Phosphatase 204 U/L (45-117) H 02/18/20 05:13 Lipase 296 U/L (73-393) 02/17/20 13:35 Home Medications: Insulin NPH Hum/Reg Insulin Hm [Humulin 70/30 Kwikpen] 60 unit SQ BID 04/07/18 Dulaglutide [Trulicity] 02/17/20 Lactulose [Cephulac*] 02/17/20 Patient Discharge Instructions: Patient left against medical advice. Diet: Regular Activity: Fall precautions Time spent managing pt's care (in minutes): 55
== END 2020-02-18 12:15 | disposition left against medical advice (07) ==
LOC: ER 13:24 → ERHOLD 15:43 → 2ND 16:50
PROVIDERS: ADMIT Internal Medicine; ATTEND Internal Medicine
DX: K72.90 Hepatic failure, unspecified without coma (principal); K74.60 Unspecified cirrhosis of liver; Z86.19 Personal history of other infectious and parasitic diseases; Z53.29 Procedure and treatment not carried out because of patient's decision for other reasons; E11.9 Type 2 diabetes mellitus without complications; I10 Essential (primary) hypertension; F10.10 Alcohol abuse, uncomplicated; Z11.59 Encounter for screening for other viral diseases; Z79.4 Long term (current) use of insulin; Z79.899 Other long term (current) drug therapy; Z91.14 Patient's other noncompliance with medication regimen; Z87.891 Personal history of nicotine dependence; Z87.19 Personal history of other diseases of the digestive system
CPT/HCPCS: 96365; 93005; 87040 ×2; 85025 ×2; 80048; 36415 ×2; 80320; 82140 ×2; 83735; 80329 ×2; 85610; 82947 ×5; 80076; 81003; 84484; 83690; 80053; 83880; 70450; 71045; 96375; 96372; 99285; U0002; J3411; J1650 ×2; J7030; J1815

== ENCOUNTER 2020-05-20 19:29 | Emergency (ER) | payer OTHER ==
--- OUTSIDE RECORDS SUMMARY | 2020-05-20 19:32 | XMS REPORT | Continuity of Care Document ---
:1965 Author Organization [facility] t Address [address] [place] [address] Care Team Providers Name Role Phone Doctor [...] ID 2019-12-14 2019-12-14 Orders Doctor WILIAN [id number] 00:00:00 00:00:00 Only Unassigned, DEVYN [id number] [facility] [id number] 2018-07-28 2018-07-29 Outpatient E TAMARA HILLMAN [facility] [id number] 09:49:00 14:59:00 [facility] Results Test Description Test Time Test Comments Results Result Comments Source AMMONIA BLOOD 2018-07-29 03:56:00 Test Item Value Reference Range Interpretation Comme nts AMMONIA (test code = 54A) 122 umol/L 11-32 H BASIC METABOLIC [id number] 03:56:00 Test Item Value Reference Range Interpretation [...] (test code = RBCMOR) NORMAL URINALYSIS WITH [id number] 14:40:00 Test Item Value Reference Range Interpretation [...] code = /HPF NONE USPERM) DRUGS OF [id number] 14:35:00 Test Item Value Reference Range Interpretation [...] Opiates 2000 ng/mL GLUCOMETER GLUCOSE- LAB USE [id number] 11:41:00 Test Item Value Reference Range Interpretation Comments GLUCOMETER (test code = 238 mg/dL 70-100 H Mete r ID: GMG) [id number] tor: [id number] HILDA CHOWDARY BOZENA ALCOHOL BLOOD (ETOH)2018-07-28 09:36:00 Test Item Value Reference Range Interpretation Comments ETOH (test code = HALC) ETHANOL The result is to be used only for medical purposes ALCOHOL (test code = <10 mg/dL <=10 56A) COMPREHENSIVE METABOLIC [id number] 09:32:00 Test Item Value Reference Range Interpretation [...] (test code = 31A) 26 IU/L <=78 [id number] 09:27:00 Test Item Value Reference Range Interpretation Comments MAGNESIUM (test code = 48A) 1.7 mg/dL 1.8-2.4 L AMMONIA [id number] 09:25:00 Test Item Value Reference Range Interpretation [...] (test code = RBCMOR) NORMAL Venous Blood [id number] 09:03:00 Test Item Value Reference Range Interpretation Comments VpH (test code = 7.361 7.300-7.400 VPHRT) VpCO2 (test code = 43.2 mmHg 40.0-50.0 QYJW2CO) VpO2 (test code = 48.0 mmHg 30.0-40.0 H VPO2RT) HCO3? (test code = 23.9 mmol/L 22.0-26.0 HCO3) ALEXSANDER (test code = ALEXSANDER) -1.0 mmol/L -3.0-3.0 tHb (test code = 10.6 g/dL 14.0-18.0 L THBRT) vsO2 (test code = 78.5 % 55.0-75.0 H VSO2RT) FO2Hb (test code = 75.6 % [id number]) FCOHb (test code = 2.5 % FCOHBRTV) FMetHb (test code = 1.3 % FMETHBRTV) ABGTEMP (test code = * Temp Corrected Values* ABGTEMP) ABGTEMP (test code = 37.0 ?C ABGTEMP.) pH (T) (test code = 7.361 7.300-7.400 PHTEMPV) pCO2 (T) (test code = 43.2 mmHg 40.0-50.0 [id number]) pO2 (T) (test code = 48.0 mmHg 30.0-40.0 H [id number]) Device (test code = ROOM AIR DEVICE) [...] code = CO) XR CHEST 1 VIEW [id number] 08:38:12Portable AP chest, 1 viewLocation Code: [id number] HISTORY: Infectious diseaseCOMPARISON: NoneCOMMENT: Mild atelectasis is present with the lung bases. There is no consolidation oreffusion. The cardiomediastinal silhouette is unremarkable. The bones areintact.IMPRESSION: Mild bibasilar atelectasis. Otherwise, no acute abnormality
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
[2020-05-20] MEDS ORDERED: IBUPROFEN 200 MG TAB PO ONE (20:32)
[2020-05-20] MEDS ORDERED: SILVER SULFADIAZINE 1% 25 GM TOP ONE (20:33)
[2020-05-20] MEDS ORDERED: TETANUS & DIPHTHERIA TOX,ADULT 0.5 ML VIAL ONE (20:33)
[2020-05-20] MEDS ORDERED: IBUPROFEN 400 MG TAB ONE (20:33)
[2020-05-20] MEDS ORDERED: INSULIN GLARGINE 100 UNITS/ML SQ ONE (20:44)
[2020-05-20] MEDS ORDERED: LACTULOSE 20 GM/30 ML UCUP ONE (21:03)
--- NOTE | 2020-05-20 21:10 | RAD REPORT ---
EXAM DESCRIPTION: RAD - Sacrum And Coccyx - 05/20/2020 8:59 pm CLINICAL HISTORY: PAIN COMPARISON: No comparisons FINDINGS: Mildly displaced fracture of the inferior sacrum is present. Mild adjacent soft tissue swe lling is evident.
[2020-05-21 01:15] VITALS: TEMP 97.1; O2SAT 100
[2020-05-21 01:17] VITALS: BP 148/77
== END 2020-05-20 21:01 | disposition home or self-care (01) ==
LOC: ER 19:29
DX: S32.2XXA Fracture of coccyx, initial encounter for closed fracture (principal); T25.221A Burn of second degree of right foot, initial encounter; T31.0 Burns involving less than 10% of body surface; E11.9 Type 2 diabetes mellitus without complications; W18.00XA Striking against unspecified object with subsequent fall, initial encounter; Y93.9 Activity, unspecified; Y92.9 Unspecified place or not applicable; Z23 Encounter for immunization; I10 Essential (primary) hypertension; F17.210 Nicotine dependence, cigarettes, uncomplicated
CPT/HCPCS: 72220; 82947; 90471; 90714; 96372; 99284; J1815

== ENCOUNTER 2020-08-28 19:17 | Emergency (ER) | payer OTHER, SELFPAY ==
[2020-08-28] MEDS ORDERED: FENTANYL CITR 100 MCG/2 ML ONE (19:50)
[2020-08-28] MEDS ORDERED: NA CHLORIDE 0.9% 1,000 ML ONE (19:51)
[2020-08-28] MEDS ORDERED: ONDANSETRON 4 MG/2 ML VIAL ONE (19:51)
[2020-08-28 20:13] LABS: Absolute Lymphocytes (CBC) 0.5 K/uL (0.7-4.9); Basophils % 0.5 % (0-1.3); Hematocrit 31.2 % (39.6-49.0); MPV 9.6 fL (7.6-11.3); RBC Red Blood Cell Count 3.31 M/uL (4.33-5.43)
[2020-08-28 20:27] LABS: Albumin 1.6 g/dL (3.4-5.0); Protein, Total 6.5 g/dL (6.4-8.2)
[2020-08-28 20:36] LABS: Potassium 3.8 mmol/L (3.5-5.1)
[2020-08-28 20:42] LABS: Anisocytosis 2+; Blood Morphology Comment NOTED (NOT SEEN); Hypochromasia 1+; Platelet Estimate DECR
[2020-08-28 20:51] LABS: Bilirubin Total 6.9 mg/dL (0.2-1.0)
[2020-08-28 20:56] LABS: Urine Blood TRACE (NEG); Urine Glucose 1+ (NEG); Urine Protein NEGATIVE (NEG); Urine Specific Gravity 1.015 (1.005-1.030); Urine pH 5.5 (5.0-7.0)
--- NOTE | 2020-08-28 21:08 | RAD REPORT ---
EXAM DESCRIPTION: RAD - Chest Single View - 08/28/2020 9:02 pm CLINICAL HISTORY: generalized weakness Chest pain. COMPARISON: Chest Single View dated 02/17/2020; Chest Single View dated 01/15/2019; Chest Single View da harley 04/06/2018; Chest Single View dated 04/28/2016 FINDINGS: Portable technique limits examination quality. The lungs are grossly clear. The heart is normal in size. No displaced fractures. IMPRESSION: No acute intrathoracic process suspected.
[2020-08-28 21:42] LABS: Urine Bacteria 20-50 /HPF (NONE SEEN)
[2020-08-28 21:43] LABS: Urine Amorphous Sediment 2+ /HPF (NONE SEEN); Urine Mucus 3+ /HPF (NONE SEEN); Urine Yeast PRESENT (NONE SEEN)
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
--- NOTE | 2020-08-28 21:54 | ER ---
Nurse's Notes [facility] Name: Asif Mcpherson Age: 55 yrs Sex: Male : 1965 Arrival Date: 08/28/2020 Time: 19:18 Bed 8 Private MD: Diagnosis: Hyperglycemia, unspecified;Urinary tract infection, site not specified;Strain of muscle, fascia and tendon at neck level Presentation: 08/28 19:18 Chief complaint: EMS states: Pt hasn't taken Insulin for a month now. Toned EMS for wh body weakness. BGL at scene was 413. Pt also C/O stiff neck pain radiating to both arms. Coronavirus screen: Client denies travel out of the [place] in the last 14 days. muscle pain, Client presents with at least one sign or symptom that may indicate coronavirus-19. Standard/surgical mask placed on the client. Ebola Screen: Patient negative for fever greater than or equal to 101.5 degrees Fahrenheit, and additional compatible Ebola Virus Disease symptoms Patient denies exposure to infectious person. Initial Sepsis Screen: Does the patient meet any 2 criteria? HR > 90 bpm. Does the patient have a suspected source of infection? No. Patient's initial sepsis screen is negative. Risk Assessment: Do you want to hurt yourself or someone else? Patient reports no desire to harm self or others. Onset of symptoms was August 28, 2020. 19:18 Method Of Arrival: EMS: [facility] 19:18 Acuity: ELISABETH 3 19:23 Care prior to arrival: Medication(s) given: Normal saline infusion, 500 mL, IV wh initiated. 20 GA, in the right antecubital area, Glucose check: 413. Historical: - Allergies: 19:22 No Known Allergies; wh - PMHx: 19:22 Cirrhosis; Diabetes - IDDM; esophageal varices; Hepatitis C; Hypertension; - Immunization history:: Adult Immunizations Flu vaccine is up to date. - Social history:: Smoking status: Patient reports the use of cigarette tobacco products, smokes one-half pack cigarettes per day, Patient/guardian denies using alcohol, street drugs. Screenin:23 Abuse screen: Denies threats or abuse. Denies injuries from another. Nutritional screening: No deficits noted. Tuberculosis screening: No symptoms or risk factors identified. Fall Risk None identified. Assessment: 19:20 General: Appears in no apparent distress. Behavior is calm, cooperative, appropriate for age. Pain: Complains of pain in neck Pain radiates to right arm and left arm Pain currently is 7 out of 10 on a pain scale. Neuro: Level of Consciousness is awake, alert, obeys commands, Oriented to person, place, time, situation, Appropriate for age. Cardiovascular: Heart tones S1 S2. Respiratory: Airway is patent Respiratory effort is even, unlabored, Respiratory pattern is regular, symmetrical, Breath sounds are clear bilaterally. GI: Abdomen is flat, non-distended. : No signs and/or symptoms were reported regarding the genitourinary system. EENT: No signs and/or symptoms were reported regarding the EENT system. Derm: Skin is intact, is healthy with good turgor, Skin is pink, warm \T\ dry. Musculoskeletal: Circulation, motion, and sensation intact. 20:27 Reassessment: Patient appears in no apparent distress at this time. No changes from previously documented assessment. Patient and/or family updated on plan of care and expected duration. Pain level reassessed. Patient is alert, oriented x 3, equal unlabored respirations, skin warm/dry/pink. 21:45 Reassessment: Patient appears in no apparent distress at this time. Patient and/or family updated on plan of care and expected duration. Pain level reassessed. Patient is alert, oriented x 3, equal unlabored respirations, skin warm/dry/pink. Vital Signs: 19:18 BP 133 / 62; Pulse 95; Resp 18; Temp 97.5; Pulse Ox 98% ; Weight 77.11 kg; Height 5 ft. 8 in. (172.72 cm); Pain 5/10; 20:27 BP 129 / 71; Pulse 93; Resp 18; Pulse Ox 95% on R/A; 21:30 BP 128 / 69; Pulse 89; Resp 18; Pulse Ox 96% on R/A; 19:18 Body Mass Index 25.85 (77.11 kg, 172.72 cm) ED Course: 19:18 Patient arrived in ED. cl3 19:18 Jaun Saucedo, RN is Primary Nurse. 19:21 Triage completed. 19:23 Patient has correct armband on for positive identification. Bed in low position. Call light in reach. Side rails up X 1. playground monitor on. Pulse ox on. NIBP on. 19:24 Mark Harris NP is PHCP. pm1 19:24 Joaquín Cavazos MD is Attending Physician. pm1 19:30 Arm band placed on right wrist. 19:30 Maintain EMS IV. Dressing intact. Good blood return noted. Site clean \T\ dry. 20:41 Notified Nurse Practitioner and/or Physician Handwriting Expert of a critical lab result(s), lp1 Total Bilirubin 6.9. 21:00 Chest Single View XRAY In Process Unspecified. EDMS 22:07 No provider procedures requiring assistance completed. IV discontinued, intact, bleeding controlled, No redness/swelling at site. Administered Medications: 19:52 Drug: NS 0.9% 1000 ml Route: IV; Rate: 1000 ml; Site: right antecubital; mg2 22:06 Follow up: Response: No adverse reaction; IV Status: Completed infusion 19:52 Drug: fentaNYL (PF) 25 mcg Route: IVP; Site: right antecubital; mg2 22:06 Follow up: Response: No adverse reaction; Pain is decreased; RASS: Alert and Calm (0) 19:52 Drug: Zofran (Ondansetron) 4 mg Route: IVP; Site: right antecubital; mg2 22:05 Follow up: Response: No adverse reaction; Nausea is decreased 21:56 Drug: Rocephin 1 grams Route: IV; Rate: calculated rate; Site: right antecubital; 22:05 Follow up: Response: No adverse reaction; IV Status: Completed infusion 21:56 Drug: traMADol 50 mg Route: PO; 22:05 Follow up: Response: No adverse reaction; RASS: Alert and Calm (0) Outcome: 21:54 Discharge ordered by . pm1 22:07 Discharged to home ambulatory. 22:07 Condition: stable 22:07 Discharge instructions given to patient, Instructed on discharge instructions, follow up and referral plans. no drinking with medication, no driving heavy equipment, medication usage, POC Demonstrated understanding of instructions, follow-up care, medications, POC Prescriptions given X 2. 22:12 Patient left the ED. mg2 Signatures: Dispatcher [employer] EDNV Chelo Leal RN RN lp1 Mark Harris NP CLOCK REPAIR TECHNICIAN pm1 Jaun Saucedo, RN RN wh Rakesh Farmer RN RN mg2 Juan House cl3 Corrections: (The following items were deleted from the chart) 20:28 19:20 Derm: Skin is intact, is healthy with good turgor, Skin is pink, warm \T\ dry. wh normal, wh
[2020-08-28] MEDS ORDERED: CEFTRIAXONE/SWI 1gm 1 GM/10 ML SYR ONE (22:07)
[2020-08-28] MEDS ORDERED: TRAMADOL HCL 50 MG TAB ONE (22:08)
[2020-08-28 22:16] VITALS: TEMP 97.5
[2020-08-28 22:19] VITALS: BP 128/69; O2SAT 96
[2020-08-28] MEDS ORDERED: LACTULOSE 20 GM/30 ML UCUP ONE (22:23)
== END 2020-08-28 22:12 | disposition home or self-care (01) ==
LOC: ER 19:17
DX: E11.65 Type 2 diabetes mellitus with hyperglycemia (principal); N39.0 Urinary tract infection, site not specified; S16.1XXA Strain of muscle, fascia and tendon at neck level, initial encounter; I10 Essential (primary) hypertension; F17.210 Nicotine dependence, cigarettes, uncomplicated
CPT/HCPCS: 36415; 71045; 80053; 81003; 81015; 82947; 85025; 87086; 87088; 96361; 96374; 96375; 99284; J0696; J2405; J3010; J7030